=== PATIENT | female | born 1975 | race American Indian/Alaskan Native ===

== ENCOUNTER 2017-03-04 11:23 | Emergency (ER) | payer SELFPAY ==
[2017-03-04 12:47] LABS: Bilirubin,Urine NEG (Negative); Blood,Urine SM (Negative); Ketones,Urine NEG (Negative); Leukocyte Esterase,Urine NEG (Negative); Nitrite,Urine NEG (Negative); Protein,Urine <15 mg/dL mg/dL (Negative); RBC,Urine < 1.0 /HPF (0.0-6.0); Urobilinogen,Urine < 2.0 mg/dL (<2.0); WBC,Urine < 1.0 /HPF (0.0-6.0)
[2017-03-04] MEDS ORDERED: MORPHINE IV ONE (19:08)
--- NOTE | 2017-03-04 19:19 | Emergency Department Report ---
ED Abdominal Pain HPI - General Chief Complaint: Abdominal Pain Stated Complaint: BACK PAIN Time Seen by Provider: 03/04/17 19:07 Source: patient Mode of arrival: Ambulatory Limitations: No Limitations - History of Present Illness Initial Comments: Patient is a 41-year-old female who presents with no significant past medical history who presents with right flank pain medicine going on for 2 weeks the pain is intermittent is a 9 out of 10 and it has migrated to the right side of her abdomen. Nothing makes the flank pain better or worse. Patient denies having any dysuria or increased frequency her last bowel movement was this morning patient has no vaginal bleeding or discharge. Patient came in to the ER today because the pain has been more severe. Severity scale (0 -10): 0 - Related Data Home Medications Medication Instructions Recorded Confirmed Last Taken Aspirin EC [Aspirin Enteric Coated 81 mg PO BID 09/11/14 09/11/14 09/11/14 07:30 TAB] 81 mg Labetalol [Normodyne] 300 mg PO BID 09/11/14 09/11/14 09/11/14 07:30 300mg Vit #76/Iron,Carb/FA [Pnv 1 each PO DAILY 09/11/14 09/11/14 09/11/14 07 :30 29-1 Tablet] 1 tab Previous Rx's Medication Instructions Recorded Last Taken Type Ibuprofen [Motrin 800 MG tab] 800 mg PO Q6H PRN #30 tablet 09/15/14 Unknown Rx Acetaminophen [Acetaminophen TAB] 500 mg PO Q6HR #60 tablet 03/04/17 Unknown Rx Naproxen [Naproxen TAB] 250 mg PO Q6HR PRN #30 tablet 03/04/17 Unknown Rx Allergies Allergy/AdvReac Type Severity Reaction Status Date / Time lisinopril Allergy Itching Verified 09/11/14 10:30 ED Review of Systems ROS: Stated complaint: BACK PAIN Other details as noted in HPI Constitutional: denies: chills, fever Eyes: denies: eye pain, eye discharge, vision change ENT: denies: ear pain, throat pain Respiratory: denies: cough, shortness of breath, wheezing Cardiovascular: denies: chest pain, palpitations Endocrine: no symptoms reported Gastrointestinal: abdominal pain, other (flank pain) Genitourinary: denies: urgency, dysuria, discharge Musculoskeletal: denies: back pain, joint swelling, arthralgia Skin: denies: rash, lesions Neurological: denies: headache, weakness, paresthesias Psychiatric: denies: anxiety, depression Hematological/Lymphatic: denies: easy bleeding, easy bruising ED Past Medical Hx - Past Medical History Previous Medical History?: Yes Hx Hypertension: Yes Hx Congestive Heart Failure: No Hx Diabetes: No Hx Deep Vein Thrombosis: No Hx Renal Disease: No Hx Sickle Cell Disease: No Hx Seizures: No Hx Asthma: No Hx COPD: No Hx HIV: No - Surgical History Past Surgical History?: No - Social History Smoking Status: Current Every Day Smoker Substance Use Type: Alcohol - Medications Home Medications: Home Medications Medication Instructions Recorded Confirmed Last Taken Type Aspirin EC [Aspirin Enteric Coated 81 mg PO BID 09/11/14 09/11/14 09/11/14 07: 30 History TAB] 81 mg Labetalol [Normodyne] 300 mg PO BID 09/11/14 09/11/14 09/11/14 07:30 History 300mg Vit #76/Iron,Carb/FA [Pnv 1 each PO DAILY 09/11/14 09/11/14 09/11/14 07 :30 History 29-1 Tablet] 1 tab Ibuprofen [Motrin 800 MG tab] 800 mg PO Q6H PRN #30 tablet 09/15/14 Unknown Rx Acetaminophen [Acetaminophen TAB] 500 mg PO Q6HR #60 tablet 03/04/17 Unknown Rx Naproxen [Naproxen TAB] 250 mg PO Q6HR PRN #30 tablet 03/04/17 Unknown Rx ED Physical Exam - General Limitations: No Limitations General appearance: alert, in no apparent distress - Head Head exam: Present: atraumatic, normocephalic - Eye Eye exam: Present: normal appearance - ENT ENT exam: Present: mucous membranes moist - Neck Neck exam: Present: normal inspection - Respiratory Respiratory exam: Present: normal lung sounds bilaterally. Absent: respiratory distress - Cardiovascular Cardiovascular Exam: Present: regular rate, normal rhythm. Absent: systolic murmur, diastolic murmur, rubs, gallop - GI/Abdominal GI/Abdominal exam: Present: soft, normal bowel sounds. Absent: distended, tenderness, guarding - Extremities Exam Extremities exam: Present: normal inspection - Back Exam Back exam: Present: normal inspection - Neurological Exam Neurological exam: Present: alert, oriented X3 - Psychiatric Psychiatric exam: Present: normal affect, normal mood - Skin Skin exam: Present: warm, dry, intact, normal color. Absent: rash ED Course Vital Signs 03/04/17 03/04/17 11:37 18:30 Temperature 98.8 F 98.3 F Pulse Rate 84 76 Respiratory 18 14 Rate Blood Pressure 150/106 Blood Pressure 134/91 [Left] O2 Sat by Pulse 100 99 Oximetry ED Medical Decision Making - Lab Data Result diagrams: 03/04/17 19:50 03/04/17 19:50 Laboratory Results - last 24 hr 03/04/17 03/04/17 03/04/17 11:55 19:50 19:50 WBC 5.3 RBC 4.41 Hgb 14.4 H Hct 42.5 MCV 96 MCH 33 H MCHC 34 RDW 14.7 Plt Count 254 [place] % (Auto) Storage Consultant Add Manual Diff Complete Total Counted 100 Seg Neuts % (Manual) 42.0 Band Neutrophils % 1.0 Lymphocytes % (Manual) 40.0 H Reactive Lymphs % (Man) 0 Monocytes % (Manual) 8.0 H Eosinophils % (Manual) 6.0 H Basophils % (Manual) 2.0 H Metamyelocytes % 1.0 Myelocytes % 0 Promyelocytes % 0 Blast Cells % 0 Nucleated RBC % Not Reportable Seg Neutrophils # Man 2.2 Band Neutrophils # 0.1 Lymphocytes # (Manual) 2.1 Abs React Lymphs (Man) 0.0 Monocytes # (Manual) 0.4 Eosinophils # (Manual) 0.3 Basophils # (Manual) 0.1 Metamyelocytes # 0.1 Myelocytes # 0.0 Promyelocytes # 0.0 Blast Cells # 0.0 WBC Morphology Not Reportable Hypersegmented Neuts Not Reportable Hyposegmented Neuts Not Reportable Hypogranular Neuts Not Reportable Smudge Cells Not Reportable Toxic Granulation Not Reportable Toxic Vacuolation Not Reportable Dohle Bodies Not Reportable Pelger-Huet Anomaly Not Reportable Carlie Rods Not Reportable Platelet Estimate Appears normal Clumped Platelets Not Reportable Plt Clumps, EDTA Not Reportable Large Platelets Not Reportable Giant Platelets Not Reportable Platelet Satelliting Not Reportable Plt Morphology Comment Not Reportable RBC Morphology Normal Dimorphic RBCs Not Reportable Polychromasia Not Reportable Hypochromasia Not Reportable Poikilocytosis Not Reportable Anisocytosis Not Reportable Microcytosis Not Reportable Macrocytosis Not Reportable Spherocytes Not Reportable Pappenheimer Bodies Not Reportable Sickle Cells Not Reportable Target Cells Not Reportable Tear Drop Cells Not Reportable Ovalocytes Not Reportable Helmet Cells Not Reportable [place] Bodies Not Reportable [place] Rings Not Reportable [place] Cells Not Reportable Bite Cells Not Reportable Crenated Cell Not Reportable Elliptocytes Not Reportable Acanthocytes (Spur) Not Reportable Rouleaux Not Reportable Hemoglobin C Crystals Not Reportable Schistocytes Not Reportable Malaria parasites Not Reportable Joey Bodies Not Reportable Hem Pathologist Commnt No Sodium 140 Potassium 3.5 L Chloride 95.8 L Carbon Dioxide 29 Anion Gap 19 BUN 7 Creatinine 0.6 L Estimated GFR > 60 BUN/Creatinine Ratio 11.66 Glucose 91 Calcium 9.2 Total Bilirubin 0.30 AST 22 ALT 14 Alkaline Phosphatase 46 Total Protein 7.4 Albumin 4.2 Albumin/Globulin Ratio 1.3 Urine Color Yellow Urine Turbidity Clear Urine pH 8.0 H Ur Specific [place] 1.013 Urine Protein <15 mg/dl Urine Glucose (UA) Neg Urine Ketones Neg Urine Blood Sm Urine Nitrite Neg Urine Bilirubin Neg Urine Urobilinogen < 2.0 Ur Leukocyte Esterase Neg Urine WBC (Auto) < 1.0 Urine RBC (Auto) < 1.0 U Epithel Cells (Auto) < 1.0 - Radiology Data Radiology results: pending CT Scan shows no acute abdominal process to explain patient's findings patient may have early cirrhosis of the liver discuss finding with the patient stated that she needs to stop drinking alcohol. - Medical Decision Making Chief medical diagnosis: Nephrolithiasis Differential medical diagnosis: Pancreatitis, UTI, myalgia We'll get CBC CMP analgesia and CT scan of abdomen. Critical care attestation.: If time is entered above; I have spent that time in minutes in the direct care of this critically ill patient, excluding procedure time. ED Disposition Clinical Impression: Right flank pain Disposition: DC-01 TO HOME OR SELFCARE Is pt being admited?: No Does the pt Need Aspirin: No Condition: Stable Instructions: Abdominal Pain (ED) Additional Instructions: Please cut down on your use of alcohol. Prescriptions: Acetaminophen [Acetaminophen TAB] 500 mg PO Q6HR #60 tablet Naproxen [Naproxen TAB] 250 mg PO Q6HR PRN #30 tablet PRN Reason: Pain Referrals: PRIMARY CARE, [Primary Care Provider] - 3-5 Days Time of Disposition: 22:08
[2017-03-04 20:14] LABS: Hematocrit 42.5 % (30.3-42.9); Hemoglobin 14.4 gm/dl (10.1-14.3); Mean Corpuscular HGB Conc 34 % (30-34); Mean Corpuscular Hemoglobin 33 pg (28-32); Mean Corpuscular Volume 96 fl (79-97); Platelet Count 254 K/mm3 (140-440); Red Blood Count 4.41 M/mm3 (3.65-5.03); Red Cell Distribution Width 14.7 % (13.2-15.2); White Blood Count 5.3 K/mm3 (4.5-11.0)
[2017-03-04 20:37] LABS: Alanine Aminotransferase 14 units/L (7-56); Albumin 4.2 g/dL (3.9-5); Albumin/Globulin Ratio 1.3 %; Alkaline Phosphatase 46 units/L (35-129); Anion Gap 19 mmol/L; BUN/Creatinine Ratio 11.66; Blood Urea Nitrogen 7 mg/dL (7-17); Calcium 9.2 mg/dL (8.4-10.2); Carbon Dioxide 29 mmol/L (22-30); Chloride 95.8 mmol/L (98-107); Glucose 91 mg/dL (65-100); Potassium 3.5 mmol/L (3.6-5.0); Sodium 140 mmol/L (137-145); Total Protein 7.4 g/dL (6.3-8.2)
[2017-03-04 20:59] LABS: Blastocytes % (Manual) 0 %
[2017-03-04 21:00] LABS: Diff Status Complete; RBC Morphology Normal
--- NOTE | 2017-03-04 21:57 | Cat Scan Report ---
FINAL REPORT PROCEDURE: CT ABDOMEN PELVIS W CON TECHNIQUE: Computerized axial tomography of the abdomen and pelvis was performed after the IV injection of iodinated nonionic contrast. HISTORY: right abd pain COMPARISON: No prior studies are available for comparison. FINDINGS: Lower Lung mcmanus: No sinificant abnormality seen. Upper Abdomen: The gallbladder, the adrenal glands, pancreas and the spleen are unremarkable. The left lobe of the liver is large compared to the right lobe. Early cirrhosis can present in this manner.. Kidneys, Ureters and Urinary bladder: There is a nonobstructing 2 millimeter calculus in the lower 3rd of the right kidney. Kidneys, the ureters and urinary bladder otherwise are unremarkable. Calcifications are seen in the lower pelvis which appear to represent phleboliths Retroperitoneum: Atherosclerotic changes are seen in the abdominal aorta. No aneurysm is visualized. Nonspecific subcentimeter lymph nodes are seen in the retroperitoneum. No pathologically enlarged lymph nodes are identified. Bowel: Mild diverticulosis seen in the left side of the colon without evidence of diverticulitis. There also a few scattered diverticuli in the transverse colon. Normal-appearing appendix is seen in the right lower quadrant no evidence of bowel obstruction ascites or free intraperitoneal gas. Reproductive organs: Uterus is mildly deviated to the left of midline. Small cystic change seen in the left ovary with enhancing wall suggesting corpus luteum of the left ovary. Tubal ligation catheters visualized bilaterally. Adnexa otherwise are unremarkable. Other: None IMPRESSION: There is asymmetric prominence of the left lobe of the liver. I cannot exclude early cirrhosis. The liver is otherwise unremarkable. Small nonobstructing calculus lower 3rd right kidney. Mild colonic diverticulosis without evidence of diverticulitis. Tubal ligation catheters visualized bilateral fallopian tubes. No other abnormalities are seen.
[2017-03-04 22:35] VITALS: BP 144/101
== END 2017-03-04 22:32 | disposition home or self-care (01) ==
LOC: ED 11:23
DX: R10.9 Unspecified abdominal pain (principal); I10 Essential (primary) hypertension; F17.200 Nicotine dependence, unspecified, uncomplicated; Z88.8 Allergy status to other drugs, medicaments and biological substances; Z79.82 Long term (current) use of aspirin
CPT/HCPCS: 36415; 74177; 80053; 81001; 85007; 85025; 96374; 99284; J2270; Q9967

== ENCOUNTER 2017-03-06 08:14 | Emergency (ER) | payer SELFPAY ==
--- NOTE | 2017-03-06 11:56 | Emergency Department Report ---
ED Back Pain/Injury HPI - General Chief Complaint: Extremity Injury, Lower Stated Complaint: RT LEG PAIN/NUMBNESS Time Seen by Provider: 03/06/17 11:41 Source: patient, family Mode of arrival: Ambulatory Limitations: No Limitations - History of Present Illness Initial Comments: Patient here says that she's been having back pain that is radiating down her right leg and numbness in toes for one day. She says she was here 2 days ago and was treated with Acetaminophen and naproxen. She was here 2 days ago with back pain and CT scan of abdomen and pelvis without IV contrast did not show any acute processes. She had non-obstructive calculus to the lower third of her right kidney. She did not have a urinary tract infection based on urinalysis and her lab work included CBC and BMP was stable at the time. She denies any abdominal pain. Deniesany fever or chills or nausea or vomiting. denies any back injury. Pain is 10 out of 10 and achy. She says she's taken ibuprofen and naproxen but is not helping. He has any loss of bowel or bladder function. Patient has a history of high blood pressure on medication her blood pressure is 147/106. Denies any headache, blurred vision or dizziness. MD Complaint: back pain Onset/Timin -: days(s) Similar Symptoms Previously: Yes Place: home Radiation: right leg Severity: severe Severity scale (0 -10): 10 Quality: aching Consistency: constant Improves With: immobilization Worsens With: movement, walking Context: unknown Associated Symptoms: numbness. denies: confusion, weakness, chest pain, difficulty walking, cough, difficulty urinating, diaphoresis, incontinence, fever/chills, constipation, headaches, abdominal pain, loss of appetite, malaise , nausea/vomiting, rash, seizure, shortness of breath, syncope Treatments Prior to Arrival: NSAIDS - Related Data Home Medications Medication Instructions Recorded Confirmed Last Taken Aspirin EC [Aspirin Enteric Coated 81 mg PO BID 09/11/14 09/11/14 09/11/14 07:30 TAB] 81 mg Labetalol [Normodyne] 300 mg PO BID 09/11/14 09/11/14 09/11/14 07:30 300mg Vit #76/Iron,Carb/FA [Pnv 1 each PO DAILY 09/11/14 09/11/14 09/11/14 07 :30 29-1 Tablet] 1 tab Previous Rx's Medication Instructions Recorded Last Taken Type Ibuprofen [Motrin 800 MG tab] 800 mg PO Q6H PRN #30 tablet 09/15/14 Unknown Rx Naproxen [Naproxen TAB] 250 mg PO Q6HR PRN #30 tablet 03/04/17 Unknown Rx Acetaminophen/Codeine [Tylenol 1 tab PO Q6H PRN #12 tab 03/06/17 Unknown Rx /Codeine # 3 tab] Cyclobenzaprine [Flexeril] 10 mg PO TID PRN #15 tablet 03/06/17 Unknown Rx Allergies Allergy/AdvReac Type Severity Reaction Status Date / Time lisinopril Allergy Itching Verified 09/11/14 10:30 ED Review of Systems ROS: Stated complaint: RT LEG PAIN/NUMBNESS Other details as noted in HPI Comment: All other systems reviewed and negative Constitutional: denies: chills, fever Respiratory: no symptoms reported Cardiovascular: denies: chest pain, palpitations, dyspnea on exertion, edema, syncope Gastrointestinal: denies: abdominal pain, nausea, vomiting, diarrhea, constipation Genitourinary: denies: urgency, dysuria, frequency, hematuria Musculoskeletal: back pain, arthralgia. denies: joint swelling, myalgia Neurological: numbness. denies: headache, weakness, paresthesias, confusion, abnormal gait, vertigo ED Past Medical Hx - Past Medical History Previous Medical History?: Yes Hx Hypertension: Yes Hx Congestive Heart Failure: No Hx Diabetes: No Hx Deep Vein Thrombosis: No Hx Renal Disease: No Hx Sickle Cell Disease: No Hx Seizures: No Hx Asthma: No Hx COPD: No Hx HIV: No Additional medical history: back pain - Surgical History Past Surgical History?: Yes Additional Surgical History: Essure - Family History Family history: hypertension - Social History Smoking Status: Current Every Day Smoker Substance Use Type: Alcohol, Prescribed - Medications Home Medications: Home Medications Medication Instructions Recorded Confirmed Last Taken Type Aspirin EC [Aspirin Enteric Coated 81 mg PO BID 09/11/14 09/11/14 09/11/14 07: 30 History TAB] 81 mg Labetalol [Normodyne] 300 mg PO BID 09/11/14 09/11/14 09/11/14 07:30 History 300mg Vit #76/Iron,Carb/FA [Pnv 1 each PO DAILY 09/11/14 09/11/14 09/11/14 07 :30 History 29-1 Tablet] 1 tab Ibuprofen [Motrin 800 MG tab] 800 mg PO Q6H PRN #30 tablet 09/15/14 Unknown Rx Naproxen [Naproxen TAB] 250 mg PO Q6HR PRN #30 tablet 03/04/17 Unknown Rx Acetaminophen/Codeine [Tylenol 1 tab PO Q6H PRN #12 tab 03/06/17 Unknown Rx /Codeine # 3 tab] Cyclobenzaprine [Flexeril] 10 mg PO TID PRN #15 tablet 03/06/17 Unknown Rx ED Physical Exam - General Limitations: No Limitations General appearance: alert, in no apparent distress - Head Head exam: Present: atraumatic, normocephalic, normal inspection - Eye Eye exam: Present: normal appearance, PERRL, EOMI Pupils: Present: normal accommodation - ENT ENT exam: Present: normal exam, normal orophraynx, mucous membranes moist - Neck Neck exam: Present: normal inspection, full ROM. Absent: tenderness, meningismus, lymphadenopathy - Respiratory Respiratory exam: Present: normal lung sounds bilaterally. Absent: respiratory distress, chest wall tenderness - Cardiovascular Cardiovascular Exam: Present: regular rate, normal rhythm, normal heart sounds - GI/Abdominal GI/Abdominal exam: Present: soft, normal bowel sounds. Absent: distended, tenderness, guarding, rebound, rigid - Extremities Exam Extremities exam: Present: normal inspection, full ROM, normal capillary refill , other. Absent: tenderness, pedal edema, joint swelling, calf tenderness - Expanded Lower Extremity Exam Right Hip exam: Present: normal inspection, full ROM, pelvic stability. Absent: tenderness, swelling, abrasion, laceration, ecchymosis, deformity, crepidus, dislocation, erythema, external rotation, internal rotation, shortening Upper Leg exam: Present: normal inspection, full ROM. Absent: tenderness, swelling, abrasion, laceration, ecchymosis, deformity, crepidus, dislocation, erythema Knee exam: Present: normal inspection, full ROM, full knee extension. Absent: tenderness, swelling, abrasion, laceration, ecchymosis, deformity, crepidus, dislocation, erythema, effusion, pain w/ pronation/supination, posterior draw sign Lower Leg exam: Present: normal inspection, full ROM. Absent: tenderness, swelling, abrasion, laceration, ecchymosis, deformity, crepidus, dislocation, erythema, palpable cord, Oskar's sign Ankle exam: Present: normal inspection, full ROM. Absent: tenderness, swelling , abrasion, laceration, ecchymosis, deformity, crepidus, dislocation, erythema Foot/Toe exam: Present: normal inspection, full ROM. Absent: tenderness, swelling, abrasion, laceration, ecchymosis, deformity, crepidus, dislocation, erythema, amputation, puncture wound, foreign body, calcaneal tenderness, tenderness at base of 5th metatarsal, nail avulsion, subungual hematoma Neuro vascular tendon exam: Present: no vascular compromise. Absent: pulse deficit, abnormal cap refill, motor deficit, sensory deficit, tendon deficit, extremity cold to touch, pallor, abnormal 2-point discrimination, decreased fine /light touch, foot drop, peroneal nerve deficit, significant pain with passive ROM of distal joint Gait: Positive: observed and normal - Back Exam Back exam: Present: normal inspection, full ROM. Absent: tenderness, CVA tenderness (R), CVA tenderness (L), muscle spasm, paraspinal tenderness, vertebral tenderness, rash noted - Expanded Back Exam Expanded Back exam: Absent: saddle anesthesia Back exam: Negative Straight Leg Raising: Left, Right - Neurological Exam Neurological exam: Present: alert, oriented X3, normal gait, reflexes normal. Absent: motor sensory deficit - Expanded Neurological Exam Expanded Neurological exam: Absent: innattentive, memory loss-remote event, memory loss- recent event, ataxia, receptive aphasia, expressive aphasia, total aphasia, tremor, protecting the airway Patient oriented to: Present: person, place, time Speech: Present: fluid speech Cranial nerves: EOM's Intact: Normal, Gag Reflex: Normal, Tongue Deviation: Normal, Nystagmus: Normal, Facial Sensation: Normal Cerebellar function: Romberg: Normal Upper motor neuron: Pronator Drift: Normal, Sensory Extinction: Normal Sensory exam: Upper Extremity Light Touch: Normal, Upper Extremity Temperature: Normal, UE 2 Point Discrimination: Normal, Lower Extremity Light Touch: Normal, Lower Extremity Temperature: Normal, LE 2 Point Discrimination: Normal Motor strength exam: RUE: 5, LUE: 5, RLE: 5, LLE: 5 DTR: bicep (R): 2+, bicep (L): 2+, tricep (R): 2+, tricep (L): 2+, knee (R): 2+ , knee (L): 2+, ankle (R): 2+, ankle (L): 2+ Best Eye Response ([place]): (4) open spontaneously Best Motor Response ([place]): (6) obeys commands Best Verbal Response ([place]): (5) oriented [place] Total: 15 - Psychiatric Psychiatric exam: Present: normal affect, normal mood - Skin Skin exam: Present: warm, dry, intact, normal color. Absent: rash ED Course Vital Signs 03/06/17 03/06/17 08:23 12:59 Temperature 98.4 F Pulse Rate 82 65 Respiratory 18 20 Rate Blood Pressure 147/106 Blood Pressure 127/75 [Right] O2 Sat by Pulse 100 97 Oximetry - Reevaluation(s) Reevaluation #1: 03/06/17 13:42 Patient given Mauk 5/325 2 tablets and Toradol 60 mg by mouth for back pain and she voiced relief of her pain. ED Medical Decision Making - Radiology Data Radiology results: report reviewed X-ray of lumbar spine reveals mild arthritis to L5 to S1. She had a CT scan of the abdomen and pelvis on 03/04/2017 which shows that she has nonobstructive right lower renal calculi. - Medical Decision Making ED course: Pt presented to the emergency room for right lower back pain with radiation to her right lower extremity. She said she was here 2 days ago for back pain and he gave her naproxen and acetaminophen which is not helping. Patient had a CT scan on 03/04/2017 of her abdomen and pelvis without contrast due to presentation of back pain which shows right renal calculi without obstruction. LAB work from 03/04/2017 shows normal urinalysis and stable CBC and BMP. Patient was given Mauk 5/325 mg 2 tablets and Toradol 60 mg IM for back pain and she voiced relief. I Discussed with patient that she will need to follow up with orthopedic doctor and also urologist.I Discussed with her that she has a kidney stone on the right side which could be causing her back pain and she also has arthritis in her lower back which is causing back pain with radiculopathy. She does not have any hematuria or urinary symptoms at this present. Blood pressure was elevated in triage but it's now normalized. Patient is stable at present . Diagnosis is lumbar radiculopathy and right kidney stones. I explained to patient discharge diagnoses and treatment plan and she voiced understanding. Patient discharged home with prescription for Flexeril, Tylenol 3 and to continue her ibuprofen. Stop taking plain Tylenol . I discussed with her she needs to increase her fluid intake to 2-3 L of fluid to flush kidney stone on the first system. Patient discharged home in stable condition. Critical care attestation.: If time is entered above; I have spent that time in minutes in the direct care of this critically ill patient, excluding procedure time. ED Disposition Clinical Impression: Kidney stone on right side, Lumbar radiculopathy, acute Back pain Qualifiers: Back pain location: low back pain Chronicity: acute Back pain laterality: right Sciatica presence: with sciatica Sciatica laterality: sciatica of right side Qualified Code(s): M54.41 - Lumbago with sciatica, right side Disposition: TO HOME OR SELFCARE Is pt being admited?: No Does the pt Need Aspirin: No Condition: Stable Instructions: Kidney Stones (ED), Lumbar Radiculopathy (ED) Additional Instructions: Follow-up with urologist as instructed Follow-up with [facility] for management of blood pressure and chronic medical problem Follow-up with Dr. Mccall was orthopedic doctor Take medication as prescribed. Flexeril causes drowsiness so please do not drive or operate heavy machinery while taking this medication Increase U fluid to 2-3 L of liquids per day to flush kidney stone out Stop taking regular Tylenol and he can take Tylenol No. [address] or operate heavy machinery while taking this medication as it causes drowsiness Prescriptions: Acetaminophen/Codeine [Tylenol /Codeine # 3 tab] 1 tab PO Q6H PRN #12 tab PRN Reason: Pain , Severe (7-10) Cyclobenzaprine [Flexeril] 10 mg PO TID PRN #15 tablet PRN Reason: Muscle Spasm Referrals: PRIMARY CARE, [Primary Care Provider] - 2-3 Days [facility] [Outside] - 2-3 Days CHARLES LOWERY MD [Staff Physician] - 2-3 Days JOSEPH MCCALL MD [Staff Physician] - 03/09/17 Forms: Work/School Release Form(ED)
[2017-03-06] MEDS ORDERED: TORADOL IM ONE (11:59)
[2017-03-06] MEDS ORDERED: NORCO 5/325 PO ONE (11:59)
[2017-03-06 13:00] VITALS: BP 127/75
--- NOTE | 2017-03-06 13:15 | XRay Report ---
LUMBAR SPINE RADIOGRAPHS: INDICATION: Back pain with radiculopathy. COMPARISON: None similar. FINDINGS: AP and lateral lumbar spine radiographs demonstrate normal vertebral body stature and alignment. Mild L5-S1 disc narrowing not excluded. Normal remainder disc heights. Intact SI joints. Bilateral Essure devices. Nonobstructive bowel gas pattern. Clear visualized lung bases. Some extrinsic artifacts. CONCLUSION: No acute lumbar radiographic abnormality with L5-S1 disc narrowing questioned. Please correlate. Thank you for the opportunity to participate in this patient's care.
== END 2017-03-06 14:19 | disposition home or self-care (01) ==
LOC: ED 08:14
DX: N20.0 Calculus of kidney (principal); M54.16 Radiculopathy, lumbar region; M54.41 Lumbago with sciatica, right side; I10 Essential (primary) hypertension; F17.200 Nicotine dependence, unspecified, uncomplicated; Z88.8 Allergy status to other drugs, medicaments and biological substances
CPT/HCPCS: 72100; 96372; 99283; J1885

== ENCOUNTER 2020-12-19 17:23 | Emergency (ER) | payer MEDICAID ==
[2020-12-19 17:35] VITALS: BP 129/88
--- NOTE | 2020-12-19 18:34 | Event Note ---
ED Screening Note ED Screening Note: n/v/d that began three days ago states she has had multiple episodes of each no blood or pus in stool or vomit no recent travel no recent abx no water from different source, no camping states she feels dehydrated states she has abd cramping PMHx HTN allergy: lisinopril LNMP: 11/27/2020 PSHx: essure procedure This initial assessment/diagnostic orders/clinical plan/treatment(s) is/are subject to change based on patients health status, clinical progression and re- assessment by fellow clinical providers in the ED. Further treatment and workup at subsequent clinical providers discretion. Patient/guardian urged not to elope from the ED as their condition may be serious if not clinically assessed and managed. Initial orders include: labs, UA
[2020-12-19 19:23] LABS: Basophils % (Auto) 0.4 % (0.0-1.8); Eosinophils % (Auto) 0.6 % (0.0-4.3); Hematocrit 29.9 % (30.3-42.9); Hemoglobin 10.6 gm/dl (10.1-14.3); Lymphocytes % (Auto) 19.6 % (13.4-35.0); Mean Corpuscular HGB Conc 36 % (30-34); Mean Corpuscular Volume 102 fl (79-97); Monocytes # (Auto) 0.7 K/mm3 (0.0-0.8); Monocytes % (Auto) 13.4 % (0.0-7.3); Platelet Count 190 K/mm3 (140-440); Red Blood Count 2.93 M/mm3 (3.65-5.03)
[2020-12-19 19:24] LABS: Alanine Aminotransferase 45 units/L (7-56); Albumin 2.4 g/dL (3.9-5); Calcium 7.4 mg/dL (8.4-10.2); Hemolysis Index 0
[2020-12-19 19:27] LABS: Red Cell Distribution Width 21.3 % (13.2-15.2)
[2020-12-19 19:30] LABS: BUN/Creatinine Ratio 3; Blood Urea Nitrogen < 1 mg/dL (7-17)
[2020-12-19 20:16] LABS: Bacteria,Urine 1+ /HPF (Negative); Bilirubin,Urine MOD (Negative); Blood,Urine NEG (Negative); Color,Urine Amber (Yellow); Mucus,Urine FEW /HPF; Protein,Urine <15 mg/dL mg/dL (Negative)
--- NOTE | 2020-12-19 20:32 | Emergency Department Report ---
<SARAHPIEDAD - Last Filed: 12/20/20 01:31> ED Abdominal Pain HPI - General Chief Complaint: Abdominal Pain Stated Complaint: DEHYDRATED Time Seen by Provider: 12/19/20 18:33 - Related Data Home Medications Medication Instructions Recorded Confirmed Last Taken Aspirin EC [Aspirin Enteric Coated 81 mg PO BID 09/11/14 09/11/14 09/11/14 07:30 TAB] 81 mg Vit #76/Iron,Carb/FA [Pnv 1 each PO DAILY 09/11/14 09/11/14 09/11/14 07:30 29-1 Tablet] 1 tab labetaloL [Normodyne] 300 mg PO BID 09/11/14 09/11/14 09/11/14 07:30 300 mg Previous Rx's Medication Instructions Recorded Last Taken Type Ibuprofen [Motrin 800 MG tab] 800 mg PO Q6H PRN #30 tablet 09/15/14 Unknown Rx Naproxen [Naproxen TAB] 250 mg PO Q6HR PRN #30 tablet 03/04/17 Unknown Rx Acetaminophen/Codeine [Tylenol 1 tab PO Q6H PRN #12 tab 03/06/17 Unknown Rx /Codeine # 3 tab] Cyclobenzaprine [Flexeril] 10 mg PO TID PRN #15 tablet 03/06/17 Unknown Rx Allergies Allergy/AdvReac Type Severity Reaction Status Date / Time lisinopril Allergy Itching Verified 09/11/14 10:30 ED Past Medical Hx - Medications Home Medications: Home Medications Medication Instructions Recorded Confirmed Last Taken Type Aspirin EC [Aspirin Enteric Coated 81 mg PO BID 09/11/14 09/11/14 09/11/14 07:30 History TAB] 81 mg Vit #76/Iron,Carb/FA [Pnv 1 each PO DAILY 09/11/14 09/11/14 09/11/14 07:30 History 29-1 Tablet] 1 tab labetaloL [Normodyne] 300 mg PO BID 09/11/14 09/11/14 09/11/14 07:30 History 300 mg Ibuprofen [Motrin 800 MG tab] 800 mg PO Q6H PRN #30 tablet 09/15/14 Unknown Rx Naproxen [Naproxen TAB] 250 mg PO Q6HR PRN #30 tablet 03/04/17 Unknown Rx Acetaminophen/Codeine [Tylenol 1 tab PO Q6H PRN #12 tab 03/06/17 Unknown Rx /Codeine # 3 tab] Cyclobenzaprine [Flexeril] 10 mg PO TID PRN #15 tablet 03/06/17 Unknown Rx ED Medical Decision Making - Lab Data Result diagrams: 12/19/20 18:41 12/19/20 18:41 - Medical Decision Making I evaluated this patient alongside my colleague Mr. Albert CHACON. Mrs. Tatum is a 45-year-old female with history of alcohol use "3-4 beers every other day" who presents chief complaint of yellow eyes. She thought she may be dehydrated. She denies any pain. I have reviewed labs which revealed severely elevated total bilirubin AST to ALT ratio 3:1. I suspect alcoholic liver disease. I recommended outpatient GI follow-up. Also recommended cessation of alcohol use and avoidance of acetaminophen-containing products. ED Disposition Clinical Impression: Alcoholic liver disease, Painless jaundice Disposition: TO HOME OR SELFCARE Condition: Stable Instructions: Alcoholic Liver Disease, [id number], Jaundice, Adult, [id number], Abdominal Pain (ED) Additional Instructions: Please refrain from utilization of alcohol and Tylenol until you follow-up with gastroenterology Referrals: [facility] [Provider Group] - 3-5 Days BOB RUBIN MD [Staff Physician] - 3-5 Days <ELEANOR ZALDIVAR - Last Filed: 12/20/20 02:02> ED Abdominal Pain HPI - General Source: patient Mode of arrival: Ambulatory Limitations: No Limitations - History of Present Illness Initial Comments: 45-year-old -[place] female with past medical history of hypertension untreated presents emergency department complaining of a 4-day history of pelvic cramping pain that radiates up her abdomen associated with diarrhea and vomiting and a vague abdominal pressure. She reports no hemoptysis, hematemesis, no chest pain, no palpitation, no shortness of breath, no fever, chills, sweats no vaginal bleeding, no vaginal discharge, no hematochezia. She reports a history of tobacco abuse and states that she does drink from time to time. Complaint: abdominal pain ED Review of Systems ROS: Stated complaint: DEHYDRATED Other details as noted in HPI Comment: All other systems reviewed and negative ED Past Medical Hx - Past Medical History Previous Medical History?: Yes Hx Hypertension: Yes Hx Congestive Heart Failure: No Hx Diabetes: No Hx Deep Vein Thrombosis: No Hx Renal Disease: No Hx Sickle Cell Disease: No Hx Seizures: No Hx Asthma: No Hx COPD: No Hx HIV: No Additional medical history: back pain - Surgical History Past Surgical History?: Yes Additional Surgical History: Essure - Social History Smoking Status: Current Every Day Smoker Substance Use Type: Alcohol ED Physical Exam - General Limitations: No Limitations General appearance: alert, in no apparent distress - Head Head exam: Present: atraumatic, normocephalic - Eye Eye exam: Present: normal appearance, PERRL, scleral icterus Pupils: Present: normal accommodation - ENT ENT exam: Present: normal exam, mucous membranes moist - Neck Neck exam: Present: normal inspection - Respiratory Respiratory exam: Present: normal lung sounds bilaterally. Absent: respiratory distress - Cardiovascular Cardiovascular Exam: Present: regular rate, normal rhythm. Absent: systolic murmur, diastolic murmur, rubs, gallop - GI/Abdominal GI/Abdominal exam: Present: soft, tenderness, normal bowel sounds. Absent: guarding, rebound, hyperactive bowel sounds, hypoactive bowel sounds, organomegaly - Extremities Exam Extremities exam: Present: normal inspection, full ROM, normal capillary refill - Back Exam Back exam: Present: normal inspection - Neurological Exam Neurological exam: Present: alert, oriented X3 - Psychiatric Psychiatric exam: Present: normal affect, normal mood - Skin Skin exam: Present: warm, dry, intact, normal color. Absent: rash ED Course Vital Signs 12/19/20 17:29 Temperature 99.1 F Pulse Rate 117 H Respiratory 18 Rate Blood Pressure 129/88 O2 Sat by Pulse 99 Oximetry ED Medical Decision Making - Lab Data Result diagrams: 12/19/20 18:41 12/19/20 18:41 Lab Results 12/19/20 12/19/20 12/19/20 Range/Units 18:41 18:41 18:41 WBC 5.2 (4.5-11.0) K/mm3 RBC 2.93 L (3.65-5.03) M/mm3 Hgb 10.6 (10.1-14.3) gm/dl Hct 29.9 L (30.3-42.9) % MCV 102 H (79-97) fl MCH 36 H (28-32) pg MCHC 36 H (30-34) % RDW 21.3 H (13.2-15.2) % Plt Count 190 (140-440) K/mm3 Lymph % (Auto) 19.6 (13.4-35.0) % Valencia % (Auto) 13.4 H (0.0-7.3) % Eos % (Auto) 0.6 (0.0-4.3) % Baso % (Auto) 0.4 (0.0-1.8) % Lymph # (Auto) 1.0 L (1.2-5.4) K/mm3 Valencia # (Auto) 0.7 (0.0-0.8) K/mm3 Eos # (Auto) 0.0 (0.0-0.4) K/mm3 Baso # (Auto) 0.0 (0.0-0.1) K/mm3 Seg Neutrophils % 66.0 (40.0-70.0) % Seg Neutrophils # 3.4 (1.8-7.7) K/mm3 Sodium 124 L (137-145) mmol/L Potassium 2.4 L* (3.6-5.0) mmol/L Chloride 78.6 L (98-107) mmol/L Carbon Dioxide 35 H (22-30) mmol/L Anion Gap 13 mmol/L BUN < 1 L (7-17) mg/dL Creatinine 0.4 L (0.6-1.2) mg/dL Estimated GFR > 60 ml/min BUN/Creatinine Ratio 3 % Glucose 119 H (65-100) mg/dL Calcium 7.4 L (8.4-10.2) mg/dL Total Bilirubin 12.50 H (0.1-1.2) mg/dL AST 229 H (5-40) units/L ALT 45 (7-56) units/L Alkaline Phosphatase 194 H (35-129) units/L Total Protein 6.9 (6.3-8.2) g/dL Albumin 2.4 L (3.9-5) g/dL Albumin/Globulin Ratio 0.5 % Lipase (13-60) units/L HCG, Qual Negative (Negative) Urine Bilirubin (Negative) Urine RBC (Auto) (0.0-6.0) /HPF U Epithel Cells (Auto) (0-13.0) /HPF 12/19/20 12/19/20 Range/Units 19:08 19:57 WBC (4.5-11.0) K/mm3 RBC (3.65-5.03) M/mm3 Hgb (10.1-14.3) gm/dl Hct (30.3-42.9) % MCV (79-97) fl MCH (28-32) pg MCHC (30-34) % RDW (13.2-15.2) % Plt Count (140-440) K/mm3 Lymph % (Auto) (13.4-35.0) % Valencia % (Auto) (0.0-7.3) % Eos % (Auto) (0.0-4.3) % Baso % (Auto) (0.0-1.8) % Lymph # (Auto) (1.2-5.4) K/mm3 Valencia # (Auto) (0.0-0.8) K/mm3 Eos # (Auto) (0.0-0.4) K/mm3 Baso # (Auto) (0.0-0.1) K/mm3 Seg Neutrophils % (40.0-70.0) % Seg Neutrophils # (1.8-7.7) K/mm3 Sodium (137-145) mmol/L Potassium (3.6-5.0) mmol/L Chloride (98-107) mmol/L Carbon Dioxide (22-30) mmol/L Anion Gap mmol/L BUN (7-17) mg/dL Creatinine (0.6-1.2) mg/dL Estimated GFR ml/min BUN/Creatinine Ratio % Glucose (65-100) mg/dL Calcium (8.4-10.2) mg/dL Total Bilirubin (0.1-1.2) mg/dL AST (5-40) units/L ALT (7-56) units/L Alkaline Phosphatase (35-129) units/L Total Protein (6.3-8.2) g/dL Albumin (3.9-5) g/dL Albumin/Globulin Ratio % Lipase 12 L (13-60) units/L HCG, Qual (Negative) Urine Bilirubin Mod (Negative) Urine RBC (Auto) 2.0 (0.0-6.0) /HPF U Epithel Cells (Auto) 5.0 (0-13.0) /HPF - Radiology Data Radiology results: report reviewed [address] [place] [id number] Ultrasound Report Signed Patient: MARCUS GONZALES MR#: [id number] : 1975 Acct:[id number] Age/Sex: 45 / F ADM Date: 12/19/20 Loc: ED Attending Dr: Ordering Physician: ANAHY RED Date of Service: 12/20/20 Procedure(s): US abdomen limited Accession Number(s): [id number] cc: ANAHY RED ULTRASOUND ABDOMEN, LIMITED (RIGHT UPPER QUADRANT) INDICATION: ruq pain. COMPARISON: CT abdomen and pelvis with contrast from 12/19/2020. FINDINGS: Pancreas: Visualized portion shows no significant abnormality. Liver: Hepatic steatosis is again noted without other significant abnormalities. Gallbladder: Sludge and stones are present without wall thickening or pericholecystic fluid. Sonographic Patterson's sign: Not performed. Bile ducts: No significant abnormality. Common Bile Duct measures 2.0 mm. Free fluid: None. Additional Findings: None. IMPRESSION: 1. Cholelithiasis without sonographic evidence of acute cholecystitis. 2. Hepatic steatosis. Signer Name: Willem Ceron MD Signed: 12/20/2020 1:04 AM Workstation Name: [id number] Transcribed By: MN Dictated By: Willem Ceron MD Electronically Authenticated By: Willem Ceron MD Signed Date/Time: 12/20/20103 DD/ 1 TD/TT: [address] [place] [id number] Cat Scan Report Signed Patient: MARCUS GONZALES MR#: [id number] : 1975 Acct:[id number] Age/Sex: 45 / F ADM Date: 12/19/20 Loc: ED Attending Dr: Ordering Physician: ANAHY RED Date of Service: 12/19/20 Procedure(s): CT abdomen pelvis w con Accession Number(s): [id number] cc: ANAHY RED CT ABDOMEN AND PELVIS WITH IV CONTRAST INDICATION: right. Right-sided abdominal pain COMPARISON: None available. TECHNIQUE: Axial CT images were obtained through the abdomen and pelvis after 100 mL IV contrast. All CT scans at this location are performed using CT dose reduction for ALARA by means of automated exposure control. FINDINGS -- ABDOMEN: Lung Bases: No acute abnormality. Liver: Fatty liver. Gallbladder: Cholelithiasis. Mild gallbladder wall thickening.. Bile Ducts: Normal. Pancreas: Normal. Spleen: Normal. Adrenals: Normal. Right Kidney and Proximal Ureter: Normal. Left Kidney and Proximal Ureter: Normal. Stomach and Bowel: Normal. Lymph Nodes: No significant adenopathy. Aorta: No significant abnormality. IVC: Normal. Additional Findings: None. FINDINGS -- PELVIS: Urinary Bladder and Distal Ureters: Normal. Reproductive Organs: Several cysts noted within both ovaries. Appendix: Normal. Bowel: Colonic wall is borderline thickened especially the proximal colon and transverse colon. Free Fluid: None. Lymph Nodes: No significant adenopathy. Additional Findings: Pelvic phleboliths. Skeletal System: No acute abnormality. IMPRESSION: 1. Borderline gallbladder wall thickening with cholelithiasis. Dedicated gallbladder ultrasound would be useful for further evaluation 2. Severe fatty liver. 3. Borderline thickening of the proximal and mid colonic mucosa. Evaluation of the colon is difficult as it is mostly collapsed but low-level colitis is difficult to exclude. Few colonic diverticula without diverticulitis. Signer Name: Allen Velazquez MD Signed: 12/19/2020 9:44 PM Workstation Name: [id number] Transcribed By: WILLOW Dictated By: Allen Velazquez MD Electronically Authenticated By: Allen Velazquez MD Signed Date/Time: 12/19/202143 DD/ 39 TD/TT: Print Cancel Print Cancel Critical care attestation.: If time is entered above; I have spent that time in minutes in the direct care of this critically ill patient, excluding procedure time. ED Disposition Is pt being admited?: No Does the pt Need Aspirin: No
[2020-12-19 20:33] LABS: Ictotest,Urine Positive (Negative)
[2020-12-19 21:49] LABS: INR 1.43 (0.87-1.13)
--- NOTE | 2020-12-19 21:49 | Cat Scan Report ---
CT ABDOMEN AND PELVIS WITH IV CONTRAST INDICATION: right. Right-sided abdominal pain COMPARISON: None available. TECHNIQUE: Axial CT images were obtained through the abdomen and pelvis after 100 mL IV contrast. All CT scans a t this location are performed using CT dose reduction for ALARA by means of automated exposure contro l. FINDINGS -- ABDOMEN: Lung Bases: No acute abnormality. Liver: Fatty liver. Gallbladder: Cholelithiasis. Mild gallbladder wall thickening.. Bile Ducts: Normal. Pancreas: Normal. Spleen: Normal. Adrenals: Normal. Right Kidney and Proximal Ureter: Normal. Left Kidney and Proximal Ureter: Normal. Stomach and Bowel: Normal. Lymph Nodes: No significant adenopathy. Aorta: No significant abnormality. IVC: Normal. Additional Findings: None. FINDINGS -- PELVIS: Urinary Bladder and Distal Ureters: Normal. Reproductive Organs: Several cysts noted within both ovaries. Appendix: Normal. Bowel: Colonic wall is borderline thickened especially the proximal colon and pratt sverse colon. Free Fluid: None. Lymph Nodes: No significant adenopathy. Additional Findings: Pelvic phleboliths. Skeletal System: No acute abnormality. IMPRESSION: 1. Borderline gallbladder wall thickening with cholelithiasis. Dedicated gallbladder ultrasound would be useful for further evaluation 2. Severe fatty liver. 3. Borderline thickening of the proximal and mid colonic mucosa. Evaluation of the colon is difficult as it is mostly collapsed but low-level colitis is difficult to exclude. Few colonic diverticula wit hout diverticulitis. Signer Name: Allen Velazquez MD Signed: 12/19/2020 9:44 PM Workstation Name: [id number]
[2020-12-19 21:50] LABS: Partial Thromboplastin Time 39.4 Sec. (24.2-36.6)
--- NOTE | 2020-12-20 01:08 | Ultrasound Report ---
ULTRASOUND ABDOMEN, LIMITED (RIGHT UPPER QUADRANT) INDICATION: ruq pain. COMPARISON: CT abdomen and pelvis with contrast from 12/19/2020. FINDINGS: Pancreas: Visualized portion shows no significant abnormality. Liver: Hepatic steatosis is again noted without other significant abnormalities. Gallbladder: Sludge and stones are present without wall thickening or pericholecystic fluid. Sonogra phic Patterson's sign: Not performed. Bile ducts: No significant abnormality. Common Bile Duct measures 2.0 mm. Free fluid: None. Additional Findings: None. IMPRESSION: 1. Cholelithiasis without sonographic evidence of acute cholecystitis. 2. Hepatic steatosis. Signer Name: Willem Ceron MD Signed: 12/20/2020 1:04 AM Workstation Name: [id number]
== END 2020-12-20 02:15 | disposition home or self-care (01) ==
LOC: ED 17:23
DX: K70.9 Alcoholic liver disease, unspecified (principal); I10 Essential (primary) hypertension; F17.200 Nicotine dependence, unspecified, uncomplicated; Z98.890 Other specified postprocedural states; Z88.8 Allergy status to other drugs, medicaments and biological substances
CPT/HCPCS: 36415; 74177; 76705; 80053; 81001; 83615; 83690; 84703; 85025; 85610; 85730; 87086; 99284; Q9967

== ENCOUNTER 2021-01-06 18:05 | Inpatient (IN) | payer MEDICAID ==
--- NOTE | 2021-01-06 18:28 | Event Note ---
ED Screening Note Date of service: 01/06/21 Time: 18:22 ED Screening Note: 45-year-old female patient presents to the emergency department for further evaluation of hypokalemia. Patient received a telephone call from her physician notifying her of critically low potassium level last week. She was instructed to go to the hospital at that time, but she did not go because she had a to attend. Now that she has returned from the , she has come to the emergency department for evaluation and management of her potassium. Patient has recently been diagnosed with liver disease; states she is under the care of a specialist but a definitive diagnosis has not yet been identified. Patient states her "abdomen feels more swollen than usual." No chest pain, shortness of breath, palpitations. General: Awake, appropriately interactive, no acute distress. Eyes: Scleral icterus noted. Neck: Supple. Full range of motion intact. Cardiovascular: Normal peripheral perfusion. Pulmonary: No respiratory distress. Patient is speaking normally without use of accessory muscles. Skin: No apparent rashes or lesions. Neurological: No facial asymmetry. Speech is clear. Follows commands. Patient is alert and oriented. Musculoskeletal: Moves all four extremities spontaneously with normal range of motion. Psych: Cooperative. Appropriate mood and affect. I have greeted and performed a focused rapid initial assessment of this patient. A comprehensive ED assessment and evaluation of the patient, analysis of all test results, and completion of the medical decision-making process will be conducted by additional ED providers. This initial assessment/diagnostic orders/clinical plan/treatment(s) is/are subject to change based on patients health status, clinical progression and re-assessment. Further treatment and workup at subsequent clinical provider's discretion. Patient/guardian urged not to elope from the ED as their condition may be serious if not clinically assessed and managed.
[2021-01-06 18:44] LABS: Basophils # (Auto) 0.1 K/mm3 (0.0-0.1); Basophils % (Auto) 1.2 % (0.0-1.8); Eosinophils # (Auto) 0.1 K/mm3 (0.0-0.4); Eosinophils % (Auto) 2.2 % (0.0-4.3); Hematocrit 29.1 % (30.3-42.9); Hemoglobin 9.9 gm/dl (10.1-14.3); Lymphocytes # (Auto) 1.4 K/mm3 (1.2-5.4); Lymphocytes % (Auto) 22.2 % (13.4-35.0); Mean Corpuscular HGB Conc 34 % (30-34); Mean Corpuscular Volume 106 fl (79-97); Monocytes # (Auto) 0.7 K/mm3 (0.0-0.8); Monocytes % (Auto) 11.2 % (0.0-7.3); Platelet Count 285 K/mm3 (140-440); Red Blood Count 2.74 M/mm3 (3.65-5.03)
[2021-01-06 19:08] LABS: Alanine Aminotransferase 19 units/L (7-56); Albumin 2.4 g/dL (3.9-5); Blood Urea Nitrogen 4 mg/dL (7-17); Calcium 7.8 mg/dL (8.4-10.2); Hemolysis Index 0
[2021-01-06 19:12] LABS: INR 1.19 (0.87-1.13)
[2021-01-06 19:13] LABS: BUN/Creatinine Ratio 8; Partial Thromboplastin Time 37.1 Sec. (24.2-36.6)
--- NOTE | 2021-01-06 19:41 | Emergency Department Report ---
ED General Adult HPI - General Chief complaint: Medical Clearance Stated complaint: POTASSIUM LOW Time Seen by Provider: 01/06/21 19:40 Source: patient Mode of arrival: Ambulatory Limitations: No Limitations - History of Present Illness Initial comments: The patient presents to the emergency department laboratory findings. 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 Greco and she was told to come to the hospital for evaluation of a low potassium level. Patient states she was told her potassium level 2.0 today at her doctor's office. Patient denies any diuretics, diarrhea, vomiting. Patient also denies a history of adrenal disease. Patient states she does have liver disease but cannot tell me what diagnosis she has been given. She denies chest pain, shortness breath, or abdominal pain. -: unknown Severity scale (0 -10): 0 Consistency: constant Improves with: none Worsens with: none Associated Symptoms: denies other symptoms Treatments Prior to Arrival: none - Related Data Home Medications Medication Instructions Recorded Confirmed Last Taken Aspirin EC [Aspirin Enteric Coated 81 mg PO BID 09/11/14 09/11/14 09/11/14 07:30 TAB] 81 mg Vit #76/Iron,Carb/FA [Pnv 1 each PO DAILY 09/11/14 09/11/14 09/11/14 07:30 29-1 Tablet] 1 tab labetaloL [Normodyne] 300 mg PO BID 09/11/14 09/11/14 09/11/14 07:30 300 mg Previous Rx's Medication Instructions Recorded Last Taken Type Ibuprofen [Motrin 800 MG tab] 800 mg PO Q6H PRN #30 tablet 09/15/14 Unknown Rx Naproxen [Naproxen TAB] 250 mg PO Q6HR PRN #30 tablet 03/04/17 Unknown Rx Acetaminophen/Codeine [Tylenol 1 tab PO Q6H PRN #12 tab 03/06/17 Unknown Rx /Codeine # 3 tab] Cyclobenzaprine [Flexeril] 10 mg PO TID PRN #15 tablet 03/06/17 Unknown Rx Allergies Allergy/AdvReac Type Severity Reaction Status Date / Time lisinopril Allergy Itching Verified 09/11/14 10:30 ED Review of Systems ROS: Stated complaint: POTASSIUM LOW Other details as noted in HPI Comment: All other systems reviewed and negative Constitutional: denies: chills, fever Eyes: denies: eye pain, eye discharge, vision change ENT: denies: ear pain, throat pain Respiratory: denies: cough, shortness of breath, wheezing Cardiovascular: denies: chest pain, palpitations Endocrine: no symptoms reported Gastrointestinal: denies: abdominal pain, nausea, diarrhea Genitourinary: denies: urgency, dysuria, discharge Musculoskeletal: denies: back pain, joint swelling, arthralgia Skin: denies: rash, lesions Neurological: denies: headache, weakness, paresthesias Psychiatric: denies: anxiety, depression Hematological/Lymphatic: denies: easy bleeding, easy bruising ED Past Medical Hx - Past Medical History Previous Medical History?: Yes Hx Hypertension: Yes Hx Congestive Heart Failure: No Hx Diabetes: No Hx Deep Vein Thrombosis: No Hx Renal Disease: No Hx Sickle Cell Disease: No Hx Seizures: No Hx Asthma: No Hx COPD: No Hx HIV: No Additional medical history: back pain - Surgical History Additional Surgical History: Essure - Social History Smoking Status: Current Every Day Smoker Substance Use Type: Alcohol - Medications Home Medications: Home Medications Medication Instructions Recorded Confirmed Last Taken Type Aspirin EC [Aspirin Enteric Coated 81 mg PO BID 09/11/14 09/11/14 09/11/14 07:30 History TAB] 81 mg Vit #76/Iron,Carb/FA [Pnv 1 each PO DAILY 09/11/14 09/11/14 09/11/14 07:30 History 29-1 Tablet] 1 tab labetaloL [Normodyne] 300 mg PO BID 09/11/14 09/11/14 09/11/14 07:30 History 300 mg Ibuprofen [Motrin 800 MG tab] 800 mg PO Q6H PRN #30 tablet 09/15/14 Unknown Rx Naproxen [Naproxen TAB] 250 mg PO Q6HR PRN #30 tablet 03/04/17 Unknown Rx Acetaminophen/Codeine [Tylenol 1 tab PO Q6H PRN #12 tab 03/06/17 Unknown Rx /Codeine # 3 tab] Cyclobenzaprine [Flexeril] 10 mg PO TID PRN #15 tablet 03/06/17 Unknown Rx ED Physical Exam - General Limitations: No Limitations General appearance: alert, in no apparent distress - Head Head exam: Present: atraumatic, normocephalic - Eye Eye exam: Present: scleral icterus - ENT ENT exam: Present: mucous membranes moist - Neck Neck exam: Present: normal inspection - Respiratory Respiratory exam: Present: normal lung sounds bilaterally. Absent: respiratory distress - Cardiovascular Cardiovascular Exam: Present: regular rate, normal rhythm. Absent: systolic murmur, diastolic murmur, rubs, gallop - GI/Abdominal GI/Abdominal exam: Present: soft, normal bowel sounds. Absent: distended, tenderness - Extremities Exam Extremities exam: Present: normal inspection - Back Exam Back exam: Present: normal inspection - Neurological Exam Neurological exam: Present: alert, oriented X3, CN II-XII intact. Absent: motor sensory deficit - Psychiatric Psychiatric exam: Present: normal affect, normal mood - Skin Skin exam: Present: warm, dry, intact, normal color. Absent: rash ED Course Vital Signs 01/06/21 18:18 Temperature 98.9 F Pulse Rate 77 Respiratory 20 Rate Blood Pressure 129/93 [Right] O2 Sat by Pulse 96 Oximetry ED Medical Decision Making - Lab Data Result diagrams: 01/06/21 18:34 01/06/21 19:45 Lab Results 01/06/21 01/06/21 01/06/21 Range/Units 18:34 18:34 18:34 WBC 6.5 (4.5-11.0) K/mm3 RBC 2.74 L (3.65-5.03) M/mm3 Hgb 9.9 L (10.1-14.3) gm/dl Hct 29.1 L (30.3-42.9) % MCV 106 H (79-97) fl MCH 36 H (28-32) pg MCHC 34 (30-34) % RDW 18.0 H (13.2-15.2) % Plt Count 285 (140-440) K/mm3 Lymph % (Auto) 22.2 (13.4-35.0) % [place] % (Auto) 11.2 H (0.0-7.3) % Eos % (Auto) 2.2 (0.0-4.3) % Baso % (Auto) 1.2 (0.0-1.8) % Lymph # (Auto) 1.4 (1.2-5.4) K/mm3 [place] # (Auto) 0.7 (0.0-0.8) K/mm3 Eos # (Auto) 0.1 (0.0-0.4) K/mm3 Baso # (Auto) 0.1 (0.0-0.1) K/mm3 Seg Neutrophils % 63.2 (40.0-70.0) % Seg Neutrophils # 4.1 (1.8-7.7) K/mm3 PT 15.6 H (12.2-14.9) Sec. INR 1.19 H (0.87-1.13) APTT 37.1 H (24.2-36.6) Sec. Sodium 129 L (137-145) mmol/L Potassium 2.0 L* (3.6-5.0) mmol/L Chloride 86.3 L (98-107) mmol/L Carbon Dioxide 32 H (22-30) mmol/L Anion Gap 13 mmol/L BUN 4 L (7-17) mg/dL Creatinine 0.5 L (0.6-1.2) mg/dL Estimated GFR > 60 ml/min BUN/Creatinine Ratio 8 % Glucose 166 H (65-100) mg/dL Calcium 7.8 L (8.4-10.2) mg/dL Magnesium 1.40 L (1.7-2.3) mg/dL Total Bilirubin 3.60 H (0.1-1.2) mg/dL AST 65 H (5-40) units/L ALT 19 (7-56) units/L Alkaline Phosphatase 139 H (35-129) units/L Ammonia (25-60) umol/L Total Protein 7.2 (6.3-8.2) g/dL Albumin 2.4 L (3.9-5) g/dL Albumin/Globulin Ratio 0.5 % 01/06/21 01/06/21 Range/Units 18:34 19:45 WBC (4.5-11.0) K/mm3 RBC (3.65-5.03) M/mm3 Hgb (10.1-14.3) gm/dl Hct (30.3-42.9) % MCV (79-97) fl MCH (28-32) pg MCHC (30-34) % RDW (13.2-15.2) % Plt Count (140-440) K/mm3 Lymph % (Auto) (13.4-35.0) % [place] % (Auto) (0.0-7.3) % Eos % (Auto) (0.0-4.3) % Baso % (Auto) (0.0-1.8) % Lymph # (Auto) (1.2-5.4) K/mm3 [place] # (Auto) (0.0-0.8) K/mm3 Eos # (Auto) (0.0-0.4) K/mm3 Baso # (Auto) (0.0-0.1) K/mm3 Seg Neutrophils % (40.0-70.0) % Seg Neutrophils # (1.8-7.7) K/mm3 PT (12.2-14.9) Sec. INR (0.87-1.13) APTT (24.2-36.6) Sec. Sodium (137-145) mmol/L Potassium 2.0 L* (3.6-5.0) mmol/L Chloride (98-107) mmol/L Carbon Dioxide (22-30) mmol/L Anion Gap mmol/L BUN (7-17) mg/dL Creatinine (0.6-1.2) mg/dL Estimated GFR ml/min BUN/Creatinine Ratio % Glucose (65-100) mg/dL Calcium (8.4-10.2) mg/dL Magnesium (1.7-2.3) mg/dL Total Bilirubin (0.1-1.2) mg/dL AST (5-40) units/L ALT (7-56) units/L Alkaline Phosphatase (35-129) units/L Ammonia 51.0 (25-60) umol/L Total Protein (6.3-8.2) g/dL Albumin (3.9-5) g/dL Albumin/Globulin Ratio % - EKG Data -: EKG Interpreted by Hi EKG shows normal: sinus rhythm Rate: normal - Medical Decision Making Patient given IV potassium and IV magnesium as well as p.o. potassium Critical Care Time: Yes Critical care time in (mins) excluding proc time.: 35 Critical care attestation.: If time is entered above; I have spent that time in minutes in the direct care of this critically ill patient, excluding procedure time. ED Disposition Clinical Impression: Hypokalemia, Hypomagnesemia, Transaminitis Disposition: OP ADMIT IP TO THIS HOSP Is pt being admited?: Yes Does the pt Need Aspirin: No Condition: Fair Referrals: PRIMARY CARE,MD [Primary Care Provider] - 3-5 Days
[2021-01-06] MEDS ORDERED: SODIUM CHLORIDE 0.9% 1000 ML 1,000 ML IV ONE (20:34)
[2021-01-06] MEDS ORDERED: MAGNESIUM SULFATE 2 GM/50 ML BAG IV ONE ×2 (20:34→22:40)
[2021-01-06] MEDS ORDERED: POTASSIUM CHLORIDE 20 MEQ PACKET FEEDTUBE ONE (20:35)
[2021-01-06] MEDS: POTASSIUM CHLORIDE 10 MEQ 10 MEQ/100 ML BAG IV SCH (21:00)
[2021-01-06] MEDS ORDERED: ACETAMINOPHEN W/CODEINE 300-30 MG TAB PO PRN (22:36)
[2021-01-06] MEDS ORDERED: NAPROXEN 250 MG PO PRN (22:36)
[2021-01-06] MEDS ORDERED: CYCLOBENZAPRINE 10 MG TAB PO PRN (22:36)
[2021-01-06] MEDS ORDERED: ACETAMINOPHEN 325 MG TAB PO PRN (22:37)
[2021-01-06] MEDS ORDERED: ALBUTEROL 2.5 MG/3 ML NEBU IH PRN (22:37)
[2021-01-06] MEDS ORDERED: ONDANSETRON 4 MG/2 ML INJ IV PRN (22:37)
[2021-01-06] MEDS ORDERED: hydrALAZINE 20 MG/1 ML INJ IV PRN (22:39)
--- NOTE | 2021-01-06 22:46 | History and Physical Report ---
History of Present Illness Date of examination: 01/06/21 Date of admission: 01/06/21 21:50 Chief complaint: Hypokalemia History of present illness: 45 years old female with history of hypertension and back pain was brought to the emergency department because of hypokalemia and hypomagnesemia. 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 Greco and she was told to come to the hospital for evaluation of a low potassium level. Patient states she was told her potassium level 2.0 today at her doctor's office. Patient denies any diuretics, diarrhea, vomiting. Patient also denies a history of adrenal disease. Patient states she does have liver disease but cannot tell me what diagnosis she has been given. She denies chest pain, shortness breath, or abdominal pain. In the emergency room patient is found to have potassium of 2.0 and magnesium 1.4 Past History Past Medical History: hypertension, other (Back pain) Medications and Allergies Allergies Allergy/AdvReac Type Severity Reaction Status Date / Time lisinopril Allergy Itching Verified 09/11/14 10:30 Home Medications Medication Instructions Recorded Confirmed Last Taken Type Aspirin EC [Aspirin Enteric Coated 81 mg PO BID 09/11/14 09/11/14 09/11/14 07:30 History TAB] 81 mg Vit #76/Iron,Carb/FA [Pnv 1 each PO DAILY 09/11/14 09/11/14 09/11/14 07:30 History 29-1 Tablet] 1 tab labetaloL [Normodyne] 300 mg PO BID 09/11/14 09/11/14 09/11/14 07:30 History 300 mg Ibuprofen [Motrin 800 MG tab] 800 mg PO Q6H PRN #30 tablet 09/15/14 Unknown Rx Naproxen [Naproxen TAB] 250 mg PO Q6HR PRN #30 tablet 03/04/17 Unknown Rx Acetaminophen/Codeine [Tylenol 1 tab PO Q6H PRN #12 tab 03/06/17 Unknown Rx /Codeine # 3 tab] Cyclobenzaprine [Flexeril] 10 mg PO TID PRN #15 tablet 03/06/17 Unknown Rx Active Meds: Active Medications Acetaminophen (Acetaminophen 325 Mg Tab) 650 mg PO Q4H PRN PRN Reason: Pain MILD(1-3)/Fever >100.5/ZHANG Acetaminophen/Codeine Phosphate (Acetaminophen W/Codeine 300-30 Mg Tab) 1 tab PO Q6H PRN PRN Reason: Pain , Severe (7-10) Albuterol (Albuterol 2.5 Mg/3 Ml Nebu) 2.5 mg IH Q4HRT PRN PRN Reason: Shortness Of Breath Albuterol/Ipratropium (Ipratropium/Albuterol Sulfate 3 Ml Ampul.Neb) 1 ampul IH Q6HRT [facility] Aspirin (Aspirin Ec 81 Mg Tab) 81 mg PO BID [facility] Cyclobenzaprine HCl (Cyclobenzaprine 10 Mg Tab) 10 mg PO TID PRN PRN Reason: Muscle Spasm Potassium Chloride (Kcl 10meq/100ml) 10 meq in 100 mls @ 100 mls/hr IV Q1H MENG Stop: 01/06/21 22:59 Last Admin: 01/06/21 21:00 Dose: 100 mls/hr Documented by: Potassium Chloride/Dextrose/Sod Cl (D5w/0.45% Nacl/Kcl 20 Meq) 20 meq in 1,000 mls @ 100 mls/hr IV DIRECT [facility] Labetalol HCl (Labetalol 200 Mg Tab) 300 mg PO BID [facility] Miscellaneous Medication (Naproxen [Naproxen Tab]) 250 mg PO Q6HR PRN PRN Reason: PAIN Miscellaneous Medication ( Vit #76/Iron,Carb/Fa [Pnv 29-1 Tablet]) 1 each PO DAILY [facility] Ondansetron HCl (Ondansetron 4 Mg/2 Ml Inj) 4 mg IV Q8H PRN PRN Reason: Nausea And Vomiting Sodium Chloride (Sodium Chloride 0.9% 10 Ml Flush Syringe) 10 ml IV BID [facility] Sodium Chloride (Sodium Chloride 0.9% 10 Ml Flush Syringe) 10 ml IV PRN PRN PRN Reason: LINE FLUSH Review of Systems Constitutional: other (Back pain) Exam - Constitutional Vitals: Temp Pulse Resp BP Pulse Ox 98.9 F 77 20 129/93 96 01/06/21 18:18 01/06/21 18:18 01/06/21 18:18 01/06/21 18:18 01/06/21 18:18 General appearance: Present: no acute distress, well-nourished - EENT Eyes: Present: PERRL ENT: hearing intact, clear oral mucosa - Neck Neck: Present: supple, normal ROM - Respiratory Respiratory effort: normal Respiratory: bilateral: CTA - Cardiovascular Heart Sounds: Present: S1 & S2. Absent: rub, click - Extremities Extremities: pulses symmetrical, No edema Peripheral Pulses: within normal limits - Abdominal General gastrointestinal: Present: soft, non-tender, non-distended, normal bowel sounds Female genitourinary: Present: normal - Integumentary Integumentary: Present: clear, warm, dry - Musculoskeletal Musculoskeletal: gait normal, strength equal bilaterally - Psychiatric Psychiatric: appropriate mood/affect, intact judgment & insight - Neurologic Neurologic: CNII-XII intact, moves all extremities Results - Labs CBC & Chem 7: 01/06/21 18:34 01/06/21 19:45 Labs: Laboratory Last Values WBC 6.5 K/mm3 (4.5-11.0) 01/06/21 18:34 RBC 2.74 M/mm3 (3.65-5.03) L 01/06/21 18:34 Hgb 9.9 gm/dl (10.1-14.3) L 01/06/21 18:34 Hct 29.1 % (30.3-42.9) L 01/06/21 18:34 MCV 106 fl (79-97) H 01/06/21 18:34 MCH 36 pg (28-32) H 01/06/21 18:34 MCHC 34 % (30-34) 01/06/21 18:34 RDW 18.0 % (13.2-15.2) H 01/06/21 18:34 Plt Count 285 K/mm3 (140-440) 01/06/21 18:34 Lymph % (Auto) 22.2 % (13.4-35.0) 01/06/21 18:34 [place] % (Auto) 11.2 % (0.0-7.3) H 01/06/21 18:34 Eos % (Auto) 2.2 % (0.0-4.3) 01/06/21 18:34 Baso % (Auto) 1.2 % (0.0-1.8) 01/06/21 18:34 Lymph # (Auto) 1.4 K/mm3 (1.2-5.4) 01/06/21 18:34 [place] # (Auto) 0.7 K/mm3 (0.0-0.8) 01/06/21 18:34 Eos # (Auto) 0.1 K/mm3 (0.0-0.4) 01/06/21 18:34 Baso # (Auto) 0.1 K/mm3 (0.0-0.1) 01/06/21 18:34 Seg Neutrophils % 63.2 % (40.0-70.0) 01/06/21 18:34 Seg Neutrophils # 4.1 K/mm3 (1.8-7.7) 01/06/21 18:34 PT 15.6 Sec. (12.2-14.9) H 01/06/21 18:34 INR 1.19 (0.87-1.13) H 01/06/21 18:34 APTT 37.1 Sec. (24.2-36.6) H 01/06/21 18:34 Sodium 129 mmol/L (137-145) L 01/06/21 18:34 Potassium 2.0 mmol/L (3.6-5.0) L* 01/06/21 19:45 Chloride 86.3 mmol/L (98-107) L 01/06/21 18:34 Carbon Dioxide 32 mmol/L (22-30) H 01/06/21 18:34 Anion Gap 13 mmol/L 01/06/21 18:34 BUN 4 mg/dL (7-17) L 01/06/21 18:34 Creatinine 0.5 mg/dL (0.6-1.2) L 01/06/21 18:34 Estimated GFR > 60 ml/min 01/06/21 18:34 BUN/Creatinine Ratio 8 % 01/06/21 18:34 Glucose 166 mg/dL (65-100) H 01/06/21 18:34 Calcium 7.8 mg/dL (8.4-10.2) L 01/06/21 18:34 Magnesium 1.40 mg/dL (1.7-2.3) L 01/06/21 18:34 Total Bilirubin 3.60 mg/dL (0.1-1.2) H 01/06/21 18:34 AST 65 units/L (5-40) H 01/06/21 18:34 ALT 19 units/L (7-56) 01/06/21 18:34 Alkaline Phosphatase 139 units/L (35-129) H 01/06/21 18:34 Ammonia 51.0 umol/L (25-60) 01/06/21 18:34 Total Protein 7.2 g/dL (6.3-8.2) 01/06/21 18:34 Albumin 2.4 g/dL (3.9-5) L 01/06/21 18:34 Albumin/Globulin Ratio 0.5 % 01/06/21 18:34 Assessment and Plan VTE prophylaxis?: Chemical Plan of care discussed with patient/family: Yes - Patient Problems (1) Hypokalemia Current Visit: Yes Status: Acute Plan to address problem: Admit the patient to the medical floor. Put the patient on potassium chloride 40 mEq p.o. every 4 hours x3 dose. D5 half-normal saline with 20 mEq of potassium at the rate of 100 cc/h. We also gave 2 g of magnesium. We will recheck the CMP in the morning. (2) Hypomagnesemia Current Visit: Yes Status: Acute Plan to address problem: Put the patient on potassium chloride 40 mEq p.o. every 4 hours x3 dose. D5 half-normal saline with 20 mEq of potassium at the rate of 100 cc/h. We also gave 2 g of magnesium. We will recheck the CMP in the morning. (3) Transaminitis Current Visit: Yes Status: Acute Plan to address problem: Protonix 40 mg p.o. daily. Zofran 4 mg IV every 6 hours as needed. D5 half- normal saline with 20 of potassium at the rate of 100 cc/h. We will recheck the CMP in the morning. If needed will consult GI in the morning (4) HTN (hypertension) Current Visit: No Status: Acute Plan to address problem: Labetalol 300 mg p.o. twice daily. Hydralazine 10 mg IV every 6 hours as ne eded. We will monitor the blood pressure closely (5) DVT prophylaxis Current Visit: Yes Status: Acute Plan to address problem: Heparin 5000 units subcu every 8 hours for DVT prophylaxis. Protonix 40 mg p.o. daily for GI prophylaxis. Patient is a full code
[2021-01-06] MEDS ORDERED: NAPROXEN 500 MG TAB PO PRN (22:51)
[2021-01-07] MEDS: IPRATROPIUM/ALBUTEROL SULFATE 3 ML AMPUL.NEB IH SCH ×2 (02:22→08:58)
[2021-01-07] MEDS: POTASSIUM CHLORIDE 10 MEQ 10 MEQ/100 ML BAG IV SCH (03:56)
[2021-01-07] MEDS: POTASSIUM CHLORIDE ER 20 MEQ TAB PO SCH ×3 (03:59→06:28)
[2021-01-07 06:14] LABS: Basophils % (Auto) 0.5 % (0.0-1.8); Eosinophils # (Auto) 0.2 K/mm3 (0.0-0.4); Eosinophils % (Auto) 3.2 % (0.0-4.3); Hematocrit 25.1 % (30.3-42.9); Hemoglobin 8.7 gm/dl (10.1-14.3); Lymphocytes # (Auto) 1.7 K/mm3 (1.2-5.4); Lymphocytes % (Auto) 29.8 % (13.4-35.0); Mean Corpuscular HGB Conc 35 % (30-34); Mean Corpuscular Volume 105 fl (79-97); Monocytes # (Auto) 0.8 K/mm3 (0.0-0.8); Monocytes % (Auto) 13.7 % (0.0-7.3); Platelet Count 255 K/mm3 (140-440)
[2021-01-07 06:26] LABS: Blood Urea Nitrogen 3 mg/dL (7-17); Calcium 7.4 mg/dL (8.4-10.2); Hemolysis Index 0
[2021-01-07 06:27] LABS: BUN/Creatinine Ratio 8
[2021-01-07] MEDS: HEPARIN 5,000 UNIT/1 ML VIAL SUB-Q SCH ×3 (06:28→21:17)
--- NOTE | 2021-01-07 07:33 | Progress Note ---
Assessment and Plan Assessment and plan: (1) Hypokalemia Current Visit: Yes Status: Acute Plan to address problem: Admit the patient to the medical floor. Put the patient on potassium chloride 40 mEq p.o. every 4 hours x3 dose. D5 half-normal saline with 20 mEq of potassium at the rate of 100 cc/h. We also gave 2 g of magnesium. We will recheck the CMP in the morning. (2) Hypomagnesemia Current Visit: Yes Status: Acute Plan to address problem: Put the patient on potassium chloride 40 mEq p.o. every 4 hours x3 dose. D5 half-normal saline with 20 mEq of potassium at the rate of 100 cc/h. We also gave 2 g of magnesium. We will recheck the CMP in the morning. (3) Transaminitis Current Visit: Yes Status: Acute Plan to address problem: Protonix 40 mg p.o. daily. Zofran 4 mg IV every 6 hours as needed. D5 half- normal saline with 20 of potassium at the rate of 100 cc/h. We will recheck the CMP in the morning. If needed will consult GI in the morning (4) HTN (hypertension) Current Visit: No Status: Acute Plan to address problem: Labetalol 300 mg p.o. twice daily. Hydralazine 10 mg IV every 6 hours as needed. We will monitor the blood pressure closely (5) DVT prophylaxis Current Visit: Yes Status: Acute Plan to address problem: Heparin 5000 units subcu every 8 hours for DVT prophylaxis. Protonix 40 mg p.o. daily for GI prophylaxis. Patient is a full code 01/07/2021 -Patient has severe hypokalemia and hypomagnesemia -We will replete potassium and magnesium -We will monitor levels later in the afternoon and tomorrow morning -Patient states she has chronic liver disease and followed with her GI doctor as an outpatient, no need to be evaluated as inpatient. Continue to follow with GI after discharge -Patient can be discharged tomorrow if hypokalemia and hypomagnesemia are corrected. History Interval history: Patient was seen and evaluated this morning Patient does not have any complaints Patient has chronic liver disease and being followed with GI as an outpatient She was called by her GI physician and told her potassium was low and need admission. Hospitalist Physical - Physical exam Narrative exam: Not in cardiopulmonary distress. The patient appeared well nourished and normally developed. Vital signs as documented. Head exam is unremarkable. No scleral icterus . Neck is without jugular venous distension, thyromegaly, or carotid bruits. Lungs are clear to auscultation. Cardiac exam reveals regular rate and Rhythm. Abdominal exam reveals normal bowel sounds, nontender, no organomegaly. Extremities are nonedematous and both femoral and pedal pulses are normal. DISH CARRIER: Alert and oriented 3. No focal weakness. - Constitutional Vitals: Temp Pulse Resp BP Pulse Ox 98.4 F 77 20 129/89 95 01/07/21 04:32 01/07/21 04:32 01/07/21 04:32 01/07/21 04:32 01/07/21 04:32 General appearance: Present: no acute distress, well-nourished Results - Labs CBC & Chem 7: 01/07/21 04:26 01/07/21 04:26 Labs: Laboratory Last Values WBC 5.8 K/mm3 (4.5-11.0) 01/07/21 04:26 RBC 2.40 M/mm3 (3.65-5.03) L 01/07/21 04:26 Hgb 8.7 gm/dl (10.1-14.3) L 01/07/21 04:26 Hct 25.1 % (30.3-42.9) L 01/07/21 04:26 MCV 105 fl (79-97) H 01/07/21 04:26 MCH 36 pg (28-32) H 01/07/21 04:26 MCHC 35 % (30-34) H 01/07/21 04:26 RDW 17.0 % (13.2-15.2) H 01/07/21 04:26 Plt Count 255 K/mm3 (140-440) 01/07/21 04:26 Lymph % (Auto) 29.8 % (13.4-35.0) 01/07/21 04:26 [place] % (Auto) 13.7 % (0.0-7.3) H 01/07/21 04:26 Eos % (Auto) 3.2 % (0.0-4.3) 01/07/21 04:26 Baso % (Auto) 0.5 % (0.0-1.8) 01/07/21 04:26 Lymph # (Auto) 1.7 K/mm3 (1.2-5.4) 01/07/21 04:26 [place] # (Auto) 0.8 K/mm3 (0.0-0.8) 01/07/21 04:26 Eos # (Auto) 0.2 K/mm3 (0.0-0.4) 01/07/21 04:26 Baso # (Auto) 0.0 K/mm3 (0.0-0.1) 01/07/21 04:26 Seg Neutrophils % 52.8 % (40.0-70.0) 01/07/21 04:26 Seg Neutrophils # 3.1 K/mm3 (1.8-7.7) 01/07/21 04:26 PT 15.6 Sec. (12.2-14.9) H 01/06/21 18:34 INR 1.19 (0.87-1.13) H 01/06/21 18:34 APTT 37.1 Sec. (24.2-36.6) H 01/06/21 18:34 Sodium 132 mmol/L (137-145) L 01/07/21 04:26 Potassium 2.2 mmol/L (3.6-5.0) L* 01/07/21 04:26 Chloride 92.9 mmol/L (98-107) L 01/07/21 04:26 Carbon Dioxide 32 mmol/L (22-30) H 01/07/21 04:26 Anion Gap 9 mmol/L 01/07/21 04:26 BUN 3 mg/dL (7-17) L 01/07/21 04:26 Creatinine 0.4 mg/dL (0.6-1.2) L 01/07/21 04:26 Estimated GFR > 60 ml/min 01/07/21 04:26 BUN/Creatinine Ratio 8 % 01/07/21 04:26 Glucose 143 mg/dL (65-100) H 01/07/21 04:26 Calcium 7.4 mg/dL (8.4-10.2) L 01/07/21 04:26 Magnesium 1.40 mg/dL (1.7-2.3) L 01/06/21 18:34 Total Bilirubin 3.60 mg/dL (0.1-1.2) H 01/06/21 18:34 AST 65 units/L (5-40) H 01/06/21 18:34 ALT 19 units/L (7-56) 01/06/21 18:34 Alkaline Phosphatase 139 units/L (35-129) H 01/06/21 18:34 Ammonia 51.0 umol/L (25-60) 01/06/21 18:34 Total Protein 7.2 g/dL (6.3-8.2) 01/06/21 18:34 Albumin 2.4 g/dL (3.9-5) L 01/06/21 18:34 Albumin/Globulin Ratio 0.5 % 01/06/21 18:34 Jean/IV: Voiding Method Toilet Active Medications - Current Medications Current Medications: Generic Name Dose Route Start Last Admin Trade Name Freq PRN Reason Stop Dose Admin Acetaminophen 650 mg 01/06/21 22:37 Acetaminophen 325 Mg Tab PO Q4H PRN Pain MILD(1-3)/Fever >100.5/ZHANG Acetaminophen/Codeine Phosphate 1 tab 01/06/21 22:36 Acetaminophen W/Codeine 300-30 Mg Tab PO Q6H PRN Pain , Severe (7-10) Albuterol 2.5 mg 01/06/21 22:37 Albuterol 2.5 Mg/3 Ml Nebu IH Q4HRT PRN Shortness Of Breath Albuterol/Ipratropium 1 ampul 01/07/21 02:00 01/07/21 02:22 Ipratropium/Albuterol Sulfate 3 Ml Ampul.Neb IH Not Given Q6HRT [facility] Aspirin 81 mg 01/07/21 10:00 Aspirin Ec 81 Mg Tab PO BID MENG Cyclobenzaprine HCl 10 mg 01/06/21 22:36 Cyclobenzaprine 10 Mg Tab PO TID PRN Muscle Spasm Heparin Sodium (Porcine) 5,000 unit 01/07/21 06:00 01/07/21 06:28 Heparin 5,000 Unit/1 Ml Vial SUB-Q 5,000 unit Q8HR [facility] Administration Hydralazine HCl 10 mg 01/06/21 22:39 Hydralazine 20 Mg/1 Ml Inj IV Q6H PRN htn Potassium Chloride/Dextrose/Sod Cl 20 meq in 1,000 mls @ 100 mls/hr 01/06/21 23:00 D5w/0.45% Nacl/Kcl 20 Meq IV DIRECT MENG Labetalol HCl 300 mg 01/07/21 10:00 Labetalol 100 Mg Tab PO BID [facility] Multivitamins/Iron/Calcium 1 each 01/07/21 10:00 [id number] Fumarate-Folic Acid Vit Tab PO DAILY [facility] Naproxen 250 mg 01/06/21 22:51 Naproxen 500 Mg Tab PO Q6H PRN Pain, Mild (1-3) Ondansetron HCl 4 mg 01/06/21 22:37 Ondansetron 4 Mg/2 Ml Inj IV Q8H PRN Nausea And Vomiting Pantoprazole Sodium 40 mg 01/07/21 07:30 Pantoprazole 40 Mg Tab PO QDAC [facility] Sodium Chloride 10 ml 01/07/21 10:00 Sodium Chloride 0.9% 10 Ml Flush Syringe IV BID MENG Sodium Chloride 10 ml 01/06/21 22:37 Sodium Chloride 0.9% 10 Ml Flush Syringe IV PRN PRN LINE FLUSH
[2021-01-07] MEDS ORDERED: POTASSIUM CHLORIDE ER 20 MEQ TAB PO SCH (08:00)
[2021-01-07] MEDS: D5W/0.45% NACL/KCL 20 MEQ 20 MEQ/1,000 ML BAG IV SCH ×2 (08:08→18:52)
[2021-01-07] MEDS: PANTOPRAZOLE 40 MG TAB PO SCH (08:09)
[2021-01-07] MEDS ORDERED: PRENATAL VIT PO SCH (10:00)
[2021-01-07] MEDS ORDERED: [UNRECOGNIZED DRUG - OTHER] PO SCH (10:00)
[2021-01-07] MEDS ORDERED: IRON CARB PO SCH (10:00)
[2021-01-07] MEDS ORDERED: MAGNESIUM SULFATE 2 GM/50 ML BAG IV SCH (10:00)
[2021-01-07] MEDS: ASPIRIN EC 81 MG TAB PO SCH ×2 (10:14→21:18)
--- NOTE | 2021-01-07 10:22 | Electrocardiograph Report ---
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
[2021-01-07] MEDS: PRENATAL VIT27-FE FUMARATE-FOLIC ACID VIT TAB PO SCH (10:42)
[2021-01-07] MEDS ORDERED: POTASSIUM CHLORIDE 20 MEQ PACKET FEEDTUBE SCH (12:00)
[2021-01-07 16:42] LABS: Bacteria,Urine 1+ /HPF (Negative); Bilirubin,Urine NEG (Negative); Blood,Urine NEG (Negative); Color,Urine Amber (Yellow); Hyaline Casts,Urine 1 /LPF; Mucus,Urine FEW /HPF; Protein,Urine <15 mg/dL mg/dL (Negative); RBC,Urine < 1.0 /HPF (0.0-6.0)
[2021-01-08] MEDS: D5W/0.45% NACL/KCL 20 MEQ 20 MEQ/1,000 ML BAG IV SCH (05:05)
[2021-01-08] MEDS: HEPARIN 5,000 UNIT/1 ML VIAL SUB-Q SCH (05:06)
[2021-01-08 05:55] LABS: Blood Urea Nitrogen 2 mg/dL (7-17); Calcium 7.5 mg/dL (8.4-10.2); Hemolysis Index 0
[2021-01-08 05:58] LABS: BUN/Creatinine Ratio 5
[2021-01-08] MEDS ORDERED: POTASSIUM CHLORIDE 20 MEQ PACKET FEEDTUBE ONE ×2 (07:48→12:00)
[2021-01-08] MEDS: PANTOPRAZOLE 40 MG TAB PO SCH (08:10)
--- NOTE | 2021-01-08 09:02 | Progress Note ---
Assessment and Plan Assessment and plan: (1) Hypokalemia Current Visit: Yes Status: Acute Plan to address problem: Admit the patient to the medical floor. Put the patient on potassium chloride 40 mEq p.o. every 4 hours x3 dose. D5 half-normal saline with 20 mEq of potassium at the rate of 100 cc/h. We also gave 2 g of magnesium. We will recheck the CMP in the morning. (2) Hypomagnesemia Current Visit: Yes Status: Acute Plan to address problem: Put the patient on potassium chloride 40 mEq p.o. every 4 hours x3 dose. D5 half-normal saline with 20 mEq of potassium at the rate of 100 cc/h. We also gave 2 g of magnesium. We will recheck the CMP in the morning. (3) Transaminitis Current Visit: Yes Status: Acute Plan to address problem: Protonix 40 mg p.o. daily. Zofran 4 mg IV every 6 hours as needed. D5 half- normal saline with 20 of potassium at the rate of 100 cc/h. We will recheck the CMP in the morning. If needed will consult GI in the morning (4) HTN (hypertension) Current Visit: No Status: Acute Plan to address problem: Labetalol 300 mg p.o. twice daily. Hydralazine 10 mg IV every 6 hours as needed. We will monitor the blood pressure closely (5) DVT prophylaxis Current Visit: Yes Status: Acute Plan to address problem: Heparin 5000 units subcu every 8 hours for DVT prophylaxis. Protonix 40 mg p.o. daily for GI prophylaxis. Patient is a full code 01/07/2021 -Patient has severe hypokalemia and hypomagnesemia -We will replete potassium and magnesium -We will monitor levels later in the afternoon and tomorrow morning -Patient states she has chronic liver disease and followed with her GI doctor as an outpatient, no need to be evaluated as inpatient. Continue to follow with GI after discharge -Patient can be discharged tomorrow if hypokalemia and hypomagnesemia are corrected. 01/08/2021 -Patient has hypokalemia -Magnesium corrected -Patient can be discharged on follow-up with GI/hepatology as outpatient History Interval history: Patient was seen and evaluated this morning Patient was complaining abdominal distension Hospitalist Physical - Physical exam Narrative exam: Not in cardiopulmonary distress. The patient appeared well nourished and normally developed. Vital signs as documented. Head exam is unremarkable. No scleral icterus . Neck is without jugular venous distension, thyromegaly, or carotid bruits. Lungs are clear to auscultation. Cardiac exam reveals regular rate and Rhythm. Abdominal exam reveals abdominal distention. Extremities are nonedematous and both femoral and pedal pulses are normal. 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 No focal weakness. - Constitutional Vitals: Temp Pulse Resp BP Pulse Ox 98.5 F 95 H 18 99/67 99 01/08/21 03:53 01/08/21 03:53 01/08/21 03:53 01/08/21 03:53 01/08/21 03:53 General appearance: Present: no acute distress, well-nourished Results - Labs CBC & Chem 7: 01/07/21 04:26 01/08/21 05:03 Labs: Laboratory Last Values WBC 5.8 K/mm3 (4.5-11.0) 01/07/21 04:26 RBC 2.40 M/mm3 (3.65-5.03) L 01/07/21 04:26 Hgb 8.7 gm/dl (10.1-14.3) L 01/07/21 04:26 Hct 25.1 % (30.3-42.9) L 01/07/21 04:26 MCV 105 fl (79-97) H 01/07/21 04:26 MCH 36 pg (28-32) H 01/07/21 04:26 MCHC 35 % (30-34) H 01/07/21 04:26 RDW 17.0 % (13.2-15.2) H 01/07/21 04:26 Plt Count 255 K/mm3 (140-440) 01/07/21 04:26 Lymph % (Auto) 29.8 % (13.4-35.0) 01/07/21 04:26 Cook % (Auto) 13.7 % (0.0-7.3) H 01/07/21 04:26 Eos % (Auto) 3.2 % (0.0-4.3) 01/07/21 04:26 Baso % (Auto) 0.5 % (0.0-1.8) 01/07/21 04:26 Lymph # (Auto) 1.7 K/mm3 (1.2-5.4) 01/07/21 04:26 Cook # (Auto) 0.8 K/mm3 (0.0-0.8) 01/07/21 04:26 Eos # (Auto) 0.2 K/mm3 (0.0-0.4) 01/07/21 04:26 Baso # (Auto) 0.0 K/mm3 (0.0-0.1) 01/07/21 04:26 Seg Neutrophils % 52.8 % (40.0-70.0) 01/07/21 04:26 Seg Neutrophils # 3.1 K/mm3 (1.8-7.7) 01/07/21 04:26 PT 15.6 Sec. (12.2-14.9) H 01/06/21 18:34 INR 1.19 (0.87-1.13) H 01/06/21 18:34 APTT 37.1 Sec. (24.2-36.6) H 01/06/21 18:34 Sodium 132 mmol/L (137-145) L 01/08/21 05:03 Potassium 3.0 mmol/L (3.6-5.0) L 01/08/21 05:03 Chloride 98.4 mmol/L (98-107) 01/08/21 05:03 Carbon Dioxide 26 mmol/L (22-30) 01/08/21 05:03 Anion Gap 11 mmol/L 01/08/21 05:03 BUN 2 mg/dL (7-17) L 01/08/21 05:03 Creatinine 0.4 mg/dL (0.6-1.2) L 01/08/21 05:03 Estimated GFR > 60 ml/min 01/08/21 05:03 BUN/Creatinine Ratio 5 % 01/08/21 05:03 Glucose 128 mg/dL (65-100) H 01/08/21 05:03 Calcium 7.5 mg/dL (8.4-10.2) L 01/08/21 05:03 Magnesium 1.70 mg/dL (1.7-2.3) 01/08/21 05:03 Total Bilirubin 3.60 mg/dL (0.1-1.2) H 01/06/21 18:34 AST 65 units/L (5-40) H 01/06/21 18:34 ALT 19 units/L (7-56) 01/06/21 18:34 Alkaline Phosphatase 139 units/L (35-129) H 01/06/21 18:34 Ammonia 51.0 umol/L (25-60) 01/06/21 18:34 Total Protein 7.2 g/dL (6.3-8.2) 01/06/21 18:34 Albumin 2.4 g/dL (3.9-5) L 01/06/21 18:34 Albumin/Globulin Ratio 0.5 % 01/06/21 18:34 Urine Color [place] (Yellow) 01/07/21 16:08 Urine Turbidity Slightly-cloudy (Clear) 01/07/21 16:08 Urine pH 7.0 (5.0-7.0) 01/07/21 16:08 Ur Specific [place] 1.014 (1.003-1.030) 01/07/21 16:08 Urine Protein <15 mg/dl mg/dL (Negative) 01/07/21 16:08 Urine Glucose (UA) 50 mg/dL (Negative) 01/07/21 16:08 Urine Ketones Neg mg/dL (Negative) 01/07/21 16:08 Urine Blood Neg (Negative) 01/07/21 16:08 Urine Nitrite Neg (Negative) 01/07/21 16:08 Urine Bilirubin Neg (Negative) 01/07/21 16:08 Urine Urobilinogen 2.0 mg/dL (<2.0) 01/07/21 16:08 Ur Leukocyte Esterase Neg (Negative) 01/07/21 16:08 Urine WBC (Auto) 1.0 /HPF (0.0-6.0) 01/07/21 16:08 Urine RBC (Auto) < 1.0 /HPF (0.0-6.0) 01/07/21 16:08 U Epithel Cells (Auto) 7.0 /HPF (0-13.0) 01/07/21 16:08 Urine Bacteria (Auto) 1+ /HPF (Negative) 01/07/21 16:08 Hyaline Casts 1 /LPF 01/07/21 16:08 Urine Mucus Few /HPF 01/07/21 16:08 Jean/IV: Voiding Method Toilet Active Medications - Current Medications Current Medications: Generic Name Dose Route Start Last Admin Trade Name Freq PRN Reason Stop Dose Admin Acetaminophen 650 mg 01/06/21 22:37 Acetaminophen 325 Mg Tab PO Q4H PRN Pain MILD(1-3)/Fever >100.5/ZHANG Acetaminophen/Codeine Phosphate 1 tab 01/06/21 22:36 Acetaminophen W/Codeine 300-30 Mg Tab PO Q6H PRN Pain , Severe (7-10) Albuterol 2.5 mg 01/06/21 22:37 Albuterol 2.5 Mg/3 Ml Nebu IH Q4HRT PRN Shortness Of Breath Aspirin 81 mg 01/07/21 10:00 01/07/21 21:18 Aspirin Ec 81 Mg Tab PO 81 mg BID MENG Administration Cyclobenzaprine HCl 10 mg 01/06/21 22:36 Cyclobenzaprine 10 Mg Tab PO TID PRN Muscle Spasm Heparin Sodium (Porcine) 5,000 unit 01/07/21 06:00 01/08/21 05:06 Heparin 5,000 Unit/1 Ml Vial SUB-Q 5,000 unit Q8HR MENG Administration Hydralazine HCl 10 mg 01/06/21 22:39 Hydralazine 20 Mg/1 Ml Inj IV Q6H PRN htn Potassium Chloride/Dextrose/Sod Cl 20 meq in 1,000 mls @ 100 mls/hr 01/06/21 23:00 01/08/21 05:05 D5w/0.45% Nacl/Kcl 20 Meq IV 100 mls/hr DIRECT MENG Administration Labetalol HCl 300 mg 01/07/21 10:00 01/07/21 21:18 Labetalol 100 Mg Tab PO 300 mg BID MENG Administration Multivitamins/Iron/Calcium 1 each 01/07/21 10:00 01/07/21 10:42 [id number] Fumarate-Folic Acid Vit Tab PO 1 each DAILY MENG Administration Naproxen 250 mg 01/06/21 22:51 Naproxen 500 Mg Tab PO Q6H PRN Pain, Mild (1-3) Ondansetron HCl 4 mg 01/06/21 22:37 Ondansetron 4 Mg/2 Ml Inj IV Q8H PRN Nausea And Vomiting Pantoprazole Sodium 40 mg 01/07/21 07:30 01/08/21 08:10 Pantoprazole 40 Mg Tab PO 40 mg QDAC MENG Administration Sodium Chloride 10 ml 01/07/21 10:00 01/07/21 21:19 Sodium Chloride 0.9% 10 Ml Flush Syringe IV 10 ml BID MENG Administration Sodium Chloride 10 ml 01/06/21 22:37 Sodium Chloride 0.9% 10 Ml Flush Syringe IV PRN PRN LINE FLUSH
[2021-01-08] MEDS: ASPIRIN EC 81 MG TAB PO SCH (09:47)
[2021-01-08] MEDS: PRENATAL VIT27-FE FUMARATE-FOLIC ACID VIT TAB PO SCH (09:48)
--- NOTE | 2021-01-08 09:59 | Discharge Summary ---
Providers - Providers Date of Admission: 01/06/21 21:50 Date of discharge: 01/08/21 Attending physician: CHERRI MUNOZ MD 01/08/21 08:59 Consult to Physician [CONS] Routine Comment: Consulting Provider: KIYA BAKER Physician Instructions: Reason For Exam: ascites, cirrhosis Primary care physician: MARKER MAKER Hospitalization Reason for admission: Hypokalemia Condition: Stable Hospital course: History of present illness: 45 years old female with history of hypertension and back pain was brought to the emergency department because of hypokalemia and hypomagnesemia. Patient states she was at her chief yeoman office today who is Dr. Greco and she was told to come to the hospital for evaluation of a low potassium level. Patient states she was told her potassium level 2.0 today at her doctor's office. Patient denies any diuretics, diarrhea, vomiting. Patient also denies a history of adrenal disease. Patient states she does have liver disease but cannot tell me what diagnosis she has been given. She denies chest pain, shortness breath, or abdominal pain. In the emergency room patient is found to have potassium of 2.0 and magnesium 1.4. Hospital course (1) Hypokalemia Current Visit: Yes Status: Acute Plan to address problem: Admit the patient to the medical floor. Put the patient on potassium chloride 40 mEq p.o. every 4 hours x3 dose. D5 half-normal saline with 20 mEq of potassium at the rate of 100 cc/h. We also gave 2 g of magnesium. We will recheck the CMP in the morning. (2) Hypomagnesemia Current Visit: Yes Status: Acute Plan to address problem: Put the patient on potassium chloride 40 mEq p.o. every 4 hours x3 dose. D5 carbajal lf-normal saline with 20 mEq of potassium at the rate of 100 cc/h. We also gave 2 g of magnesium. We will recheck the CMP in the morning. (3) Transaminitis Current Visit: Yes Status: Acute Plan to address problem: Protonix 40 mg p.o. daily. Zofran 4 mg IV every 6 hours as needed. D5 half- normal saline with 20 of potassium at the rate of 100 cc/h. We will recheck the CMP in the morning. If needed will consult GI in the morning (4) HTN (hypertension) Current Visit: No Status: Acute Plan to address problem: Labetalol 300 mg p.o. twice daily. Hydralazine 10 mg IV every 6 hours as needed. We will monitor the blood pressure closely (5) DVT prophylaxis Current Visit: Yes Status: Acute Plan to address problem: Heparin 5000 units subcu every 8 hours for DVT prophylaxis. Protonix 40 mg p.o. daily for GI prophylaxis. Patient is a full code 01/07/2021 -Patient has severe hypokalemia and hypomagnesemia -We will replete potassium and magnesium -We will monitor levels later in the afternoon and tomorrow morning -Patient states she has chronic liver disease and followed with her GI doctor as an outpatient, no need to be evaluated as inpatient. Continue to follow with GI after discharge -Patient can be discharged tomorrow if hypokalemia and hypomagnesemia are corrected. 01/08/2021; patient's potassium this morning was 3 and I order 40 mEq of potassium to be given twice before discharge. After that patient discharged home with 40 mEq of potassium daily. Her magnesium is corrected and the level this morning was 2. Patient has abdominal distention but no significant amount of fluid appreciated on physical examination. Patient does not have any shortness of breath, his abdomen is not tense. Patient does not need paracentesis at this time. Patient states she has been followed with GI/[facility] and had all the work-up there and scheduled to see them next week. Patient advised to keep her follow-up appointment. Patient's questions and concerns were addressed at the bedside. Management plan was discussed in detail and patient was in agreement with the plan of care. Disposition: DC-01 TO HOME OR SELFCARE Final Discharge Diagnosis (Prints w/discharge instructions): Severe hypokalemia. Chronic liver disease Time spent for discharge: 25-minutes - Discharge Diagnoses (1) Chronic liver disease Status: Acute (2) Hypokalemia Status: Acute (3) Hypomagnesemia Status: Acute (4) Transaminitis Status: Acute (5) HTN (hypertension) Status: Acute Core Measure Documentation - Palliative Care Palliative Care/ Comfort Measures: Not Applicable - Core Measures Any of the following diagnoses?: none Exam - Physical Exam Narrative exam: Not in cardiopulmonary distress. The patient appeared well nourished and normally developed. Vital signs as documented. Head exam is unremarkable. No scleral icterus . Neck is without jugular venous distension, thyromegaly, or carotid bruits. Lungs are clear to auscultation. Cardiac exam reveals regular rate and Rhythm. Abdominal exam reveals abdominal distention. Extremities are nonedematous and both femoral and pedal pulses are normal. 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 No focal weakness. - Constitutional Vitals: Temp Pulse Resp BP Pulse Ox 98.5 F 95 H 18 99/67 97 01/08/21 03:53 01/08/21 03:53 01/08/21 03:53 01/08/21 03:53 01/08/21 08:35 Plan Activity: no restrictions Weight Bearing Status: Full Weight Bearing Diet: low salt Special Instructions: restrict fluid intake to (1.8L) Additional Instructions: Patient is being followed with GI/hepatology. She is scheduled next week Follow up with: PRIMARY CARE, [Primary Care Provider] - 3-5 Days Prescriptions: Potassium Chloride 40 meq PO DAILY #20 packet
[2021-01-08 10:30] VITALS: BP 100/67
== END 2021-01-08 14:29 | disposition home or self-care (01) | DRG 641 ==
LOC: ED 18:05 → 4A 21:50
PROVIDERS: ADMIT Hospitalist; ATTEND Internal Medicine
DX: E87.6 Hypokalemia (principal); E83.42 Hypomagnesemia; I10 Essential (primary) hypertension; M54.9 Dorsalgia, unspecified; K76.9 Liver disease, unspecified; F17.200 Nicotine dependence, unspecified, uncomplicated; Z88.8 Allergy status to other drugs, medicaments and biological substances
CPT/HCPCS: 36415; 80048; 80053; 81001; 82140; 83735; 84132; 85025; 85610; 85730; 93005; 96374; 99406; G0378; J1644; J3475; J3480; J7030

== ENCOUNTER 2021-05-08 16:14 | Emergency (ER) | payer MEDICAID ==
[2021-05-08] MEDS ORDERED: ONDANSETRON 4 MG/2 ML INJ IV ONE (17:49)
[2021-05-08] MEDS ORDERED: SODIUM CHLORIDE 0.9% 1000 ML 1,000 ML IV ONE (17:49)
[2021-05-08] MEDS ORDERED: MORPHINE 4 MG/1 ML INJ IV ONE (17:49)
[2021-05-08 18:12] LABS: Basophils % (Auto) 0.5 % (0.0-1.8); Eosinophils # (Auto) 0.2 K/mm3 (0.0-0.4); Hemoglobin 11.4 gm/dl (10.1-14.3); Lymphocytes # (Auto) 1.6 K/mm3 (1.2-5.4); Lymphocytes % (Auto) 19.7 % (13.4-35.0); Mean Corpuscular HGB Conc 33 % (30-34); Mean Corpuscular Volume 84 fl (79-97); Monocytes # (Auto) 1.2 K/mm3 (0.0-0.8); Platelet Count 194 K/mm3 (140-440); Red Blood Count 4.18 M/mm3 (3.65-5.03); Red Cell Distribution Width 19.7 % (13.2-15.2)
--- NOTE | 2021-05-08 18:19 | Emergency Department Report ---
ED Abdominal Pain HPI - General Chief Complaint: Abdominal Pain Stated Complaint: PAIN IN ABD AND RT SIDE Time Seen by Provider: 05/08/21 17:41 Source: patient Mode of arrival: Ambulatory Limitations: No Limitations - History of Present Illness Initial Comments: Patient is a 45-year-old female presents emergency room complaints of epigastric and right upper quadrant abdominal pain that began 2 days ago. She denies any nausea, vomiting, diarrhea, urinary symptoms, hematochezia, melena, hematemesis. She states that she has had some constipation. Patient has a past medical history of liver disease, she states that she believes she was told she has fatty liver. She states her liver disease is secondary to alcoholism. She states that she last drank alcohol 2 days ago. Patient is on spironolactone and magnesium. She states that she has an allergy to lisinopril. She states her GI doctor is Dr. Vallecillo. Severity scale (0 -10): 10 - Related Data Previous Rx's Medication Instructions Recorded Last Taken Type Ibuprofen [Motrin 800 MG tab] 800 mg PO Q6H PRN #30 tablet 09/15/14 2 Days Ago Rx ~01/05/21 Potassium Chloride 40 meq PO DAILY #20 packet 01/08/21 Unknown Rx Azithromycin [Zithromax TAB] 250 mg PO QDAY 5 Days #6 tablet 05/08/21 Unknown Rx Promethazine [Phenergan] 25 mg PO Q8HR PRN #12 tab 05/08/21 Unknown Rx oxyCODONE [roxiCODONE] 5 mg PO Q6HR PRN #12 tablet 05/08/21 Unknown Rx Allergies Allergy/AdvReac Type Severity Reaction Status Date / Time lisinopril Allergy Itching Verified 09/11/14 10:30 ED Review of Systems ROS: Stated complaint: PAIN IN ABD AND RT SIDE Other details as noted in HPI Comment: All other systems reviewed and negative ED Past Medical Hx - Past Medical History Previous Medical History?: Yes Hx Hypertension: Yes Hx Congestive Heart Failure: No Hx Diabetes: No Hx Deep Vein Thrombosis: No Hx Liver Disease: Yes Hx Renal Disease: No Hx Sickle Cell Disease: No Hx Seizures: No Hx Asthma: No Hx COPD: No Hx HIV: No Additional medical history: back pain - Surgical History Past Surgical History?: Yes Additional Surgical History: Essure - Social History Smoking Status: Current Every Day Smoker - Medications Home Medications: Home Medications Medication Instructions Recorded Confirmed Last Taken Type Ibuprofen [Motrin 800 MG tab] 800 mg PO Q6H PRN #30 tablet 09/15/14 01/07/21 2 Days Ago Rx ~01/05/21 Potassium Chloride 40 meq PO DAILY #20 packet 01/08/21 Unknown Rx Azithromycin [Zithromax TAB] 250 mg PO QDAY 5 Days #6 tablet 05/08/21 Unknown Rx Promethazine [Phenergan] 25 mg PO Q8HR PRN #12 tab 05/08/21 Unknown Rx oxyCODONE [roxiCODONE] 5 mg PO Q6HR PRN #12 tablet 05/08/21 Unknown Rx ED Physical Exam - General Limitations: No Limitations General appearance: alert, in no apparent distress - Head Head exam: Present: atraumatic, normocephalic - Eye Eye exam: Present: normal appearance - ENT ENT exam: Present: mucous membranes moist - Respiratory Respiratory exam: Present: normal lung sounds bilaterally. Absent: respiratory distress, wheezes, rales, rhonchi, stridor, chest wall tenderness, accessory muscle use, decreased breath sounds, prolonged expiratory - Cardiovascular Cardiovascular Exam: Present: regular rate, normal rhythm, normal heart sounds. Absent: systolic murmur, diastolic murmur, rubs, gallop - GI/Abdominal GI/Abdominal exam: Present: soft, tenderness (RUQ, epigastric), normal bowel sounds. Absent: distended, guarding, rebound, rigid - Neurological Exam Neurological exam: Present: alert, oriented X3 - Psychiatric Psychiatric exam: Present: normal affect, normal mood - Skin Skin exam: Present: warm, dry, intact ED Course Vital Signs 05/08/21 05/08/21 05/08/21 17:20 21:52 21:54 Temperature 99.1 F Pulse Rate 110 H 103 H 92 H Respiratory 18 12 Rate Blood Pressure 155/99 Blood Pressure 160/106 [Right] O2 Sat by Pulse 100 99 Oximetry ED Medical Decision Making - Lab Data Result diagrams: 05/08/21 17:54 05/08/21 17:54 Lab Results 05/08/21 05/08/21 05/08/21 Range/Units 17:54 17:54 17:54 WBC 8.2 (4.5-11.0) K/mm3 RBC 4.18 (3.65-5.03) M/mm3 Hgb 11.4 (10.1-14.3) gm/dl Hct 35.0 (30.3-42.9) % MCV 84 (79-97) fl MCH 27 L (28-32) pg MCHC 33 (30-34) % RDW 19.7 H (13.2-15.2) % Plt Count 194 (140-440) K/mm3 Lymph % (Auto) 19.7 (13.4-35.0) % [place] % (Auto) 15.0 H (0.0-7.3) % Eos % (Auto) 2.0 (0.0-4.3) % Baso % (Auto) 0.5 (0.0-1.8) % Lymph # (Auto) 1.6 (1.2-5.4) K/mm3 [place] # (Auto) 1.2 H (0.0-0.8) K/mm3 Eos # (Auto) 0.2 (0.0-0.4) K/mm3 Baso # (Auto) 0.0 (0.0-0.1) K/mm3 Seg Neutrophils % 62.8 (40.0-70.0) % Seg Neutrophils # 5.1 (1.8-7.7) K/mm3 Sodium 128 L (137-145) mmol/L Potassium 3.8 (3.6-5.0) mmol/L Chloride 96.6 L (98-107) mmol/L Carbon Dioxide 19 L (22-30) mmol/L Anion Gap 16 mmol/L BUN 3 L (7-17) mg/dL Creatinine 0.5 L (0.6-1.2) mg/dL Estimated GFR > 60 ml/min BUN/Creatinine Ratio 6 % Glucose 114 H (65-100) mg/dL Calcium 9.1 (8.4-10.2) mg/dL Magnesium 1.40 L (1.7-2.3) mg/dL Total Bilirubin 1.20 (0.1-1.2) mg/dL AST 51 H (5-40) units/L ALT 15 (7-56) units/L Alkaline Phosphatase 132 H (35-129) units/L Total Protein 8.6 H (6.3-8.2) g/dL Albumin 3.5 L (3.9-5) g/dL Albumin/Globulin Ratio 0.7 % Lipase 149 H (13-60) units/L HCG, Qual Negative (Negative) - Radiology Data Radiology results: report reviewed Ordering Physician: ANAHY CADET Date of Service: 05/08/21 Procedure(s): CT abdomen pelvis w con Accession Number(s): [id number] cc: ANAHY CADET CT ABDOMEN AND PELVIS WITH CONTRAST INDICATION / CLINICAL INFORMATION: epigastric, RUQ pain, hx of liver disease. TECHNIQUE: Axial CT images were obtained through the abdomen and pelvis after 100 cc of Omnipaque [address] scans at this location are performed using CT dose re duction for [facility] by means of automated exposure control. COMPARISON: 12/19/2020 FINDINGS: LOWER CHEST: There is a 7 mm solid pulmonary nodule within the medial segment of the left lower lobe. Mild groundglass attenuation is noted within the left lower lobe. AORTA / ARTERIES: Mild atherosclerotic calcification without acute abnormality. IVC / VEINS: No significant abnormality. LYMPH NODES: No significant adenopathy. COLON: Diverticulosis without acute inflammation. APPENDIX: No significant abnormality. STOMACH / SMALL BOWEL: No significant abnormality. PERITONEUM: No free fluid. No free air. No fluid collection. LIVER: Nodular contour to the liver suggesting cirrhosis. GALLBLADDER: Cholelithiasis BILE DUCTS: No significant abnormality. PANCREAS: No significant abnormality. SPLEEN: No significant abnormality. ADRENALS: No significant abnormality. RIGHT KIDNEY / URETER: No significant abnormality. LEFT KIDNEY / URETER: No significant abnormality. URINARY BLADDER: No significant abnormality. REPRODUCTIVE ORGANS: No significant abnormality. SKELETAL SYSTEM: No significant abnormality. ADDITIONAL FINDINGS: None. IMPRESSION: 1. No acute intra-abdominal pathology. 2. There are a few scattered foci of groundglass attenuation within the left lower lobe as well as a 7 mm solid pulmonary nodule. These are new compared to previous CT and may represent postinfectious or postinflammatory process. Nevertheless a repeat chest CT is recommended in 6-12 months to assess for interval change. 3. Nodular contour to the liver suggesting cirrhosis. 4. Cholelithiasis. 5. Diverticulosis without diverticulitis Signer Name: Jim Haynes DO Signed: 05/08/2021 8:53 PM Workstation Name: [id number] Transcribed By: KARMA Dictated By: JIM HAYNES DO Electronically Authenticated By: JIM HAYNES DO Signed Date/Time: 05/08/212052 DD/ 45 TD/TT: - Medical Decision Making Patient is a 45-year-old female presents emergency room complaints of epigastric and right upper quadrant abdominal pain that began 2 days ago. She denies any nausea, vomiting, diarrhea, urinary symptoms, hematochezia, melena, hematemesis. She states that she has had some constipation. Patient has a past medical history of liver disease, she states that she believes she was told she has fatty liver. She states her liver disease is secondary to alcoholism. She states that she last drank alcohol 2 days ago. Patient is on spironolactone and magnesium. She states that she has an allergy to lisinopril. She states her GI doctor is Dr. Vallecillo. She will vitals with tachycardia and elevated blood p ressure which improved upon repeat. On exam patient has epigastric and right upper quadrant tenderness, no guarding, no rebound, no rigidity, no peritoneal signs. Labs with hyponatremia, hypomagnesia, elevated AST, elevated lipase. Patient given 1 L normal saline, IV magnesium, morphine and Zofran. CT abdomen pelvis with IV contrast: 1. No acute intra-abdominal pathology. 2. There are a few scattered foci of groundglass attenuation within the left lower lobe as well as a 7 mm solid pulmonary nodule. These are new compared to previous CT and may represent postinfectious or postinflammatory process. Nevertheless a repeat chest CT is recommended in 6-12 months to assess for interval change. 3. Nodular contour to the liver suggesting cirrhosis. 4. Cholelithiasis. 5. Diverticulosis without diverticulitis. On reexamination after medications patient symptoms have significantly improved and she is feeling much better and ready to go home and states that her pain is improved. Discussed case with Dr. Theron Cardona, ER attending regarding patient's laboratory and CT studies, he advised to give patient prescriotion for pain medication, nausea medication, azithromycin and encouraged alcohol cessation. advised pt Please take medication as prescribed. Please eat a clear liquid diet. Follow-up with a primary care doctor. Follow-up with a GI doctor. Please stop drinking. Return to emergency room for any new or worsening symptoms. Critical care attestation.: If time is entered above; I have spent that time in minutes in the direct care of this critically ill patient, excluding procedure time. ED Disposition Clinical Impression: Pulmonary nodule, Hypomagnesemia, Elevated AST (SGOT), Elevated lipase, Alcohol abuse, Ground glass opacity present on imaging of lung, Hyponatremia Abdominal pain Qualifiers: Abdominal location: epigastric Qualified Code(s): R10.13 - Epigastric pain Cholelithiasis Qualifiers: Cholelithiasis location: gallbladder Cholecystitis presence: without cholecystitis Biliary obstruction: without biliary obstruction Qualified Code(s): K80.20 - Calculus of gallbladder without cholecystitis without obstruction Cirrhosis Qualifiers: Hepatic cirrhosis type: unspecified hepatic cirrhosis Ascites presence: without ascites Qualified Code(s): K74.60 - Unspecified cirrhosis of liver Disposition: HOME / SELF CARE / HOMELESS Is pt being admited?: No Does the pt Need Aspirin: No Condition: Stable Instructions: Cholelithiasis, Abdominal Pain, Adult, Cirrhosis, Abdominal Pain (ED) Additional Instructions: Please take medication as prescribed. Please eat a clear liquid diet. Follow- up with a primary care doctor. Follow-up with a GI doctor. Please stop drinking. Return to emergency room for any new or worsening symptoms. Prescriptions: Promethazine [Phenergan] 25 mg PO Q8HR PRN #12 tab PRN Reason: Nausea oxyCODONE [roxiCODONE] 5 mg PO Q6HR PRN #12 tablet PRN Reason: Pain , Severe (7-10) Azithromycin [Zithromax TAB] 250 mg PO QDAY 5 Days #6 tablet Referrals: your, GI doctor [Other] - 2-3 Days your, primary care doctor [Other] - 2-3 Days Time of Disposition: 21:26 Print Language: LUXEMBOURGISH
[2021-05-08 18:34] LABS: Alanine Aminotransferase 15 units/L (7-56); Albumin 3.5 g/dL (3.9-5); Blood Urea Nitrogen 3 mg/dL (7-17); Calcium 9.1 mg/dL (8.4-10.2); Hemolysis Index 8
[2021-05-08 18:36] LABS: BUN/Creatinine Ratio 6
[2021-05-08] MEDS ORDERED: MAGNESIUM SULFATE 2 GM/50 ML BAG IV ONE (18:40)
--- NOTE | 2021-05-08 20:58 | Cat Scan Report ---
CT ABDOMEN AND PELVIS WITH CONTRAST INDICATION / CLINICAL INFORMATION: epigastric, RUQ pain, hx of liver disease. TECHNIQUE: Axial CT images were obtained through the abdomen and pelvis after 100 cc of Omnipaque [address] scans at this location are performed using CT dose reduction for ALARA by means of automated exposure control. COMPARISON: 12/19/2020 FINDINGS: LOWER CHEST: There is a 7 mm solid pulmonary nodule within the medial segment of the left lower lobe. Mild groundglass attenuation is noted within the left lower lobe. AORTA / ARTERIES: Mild atherosclerotic calcification without acute abnormality. IVC / VEINS: No significant abnormality. LYMPH NODES: No significant adenopathy. COLON: Diverticulosis without acute inflammation. APPENDIX: No significant abnormality. STOMACH / SMALL BOWEL: No significant abnormality. PERITONEUM: No free fluid. No free air. No fluid collection. LIVER: Nodular contour to the liver suggesting cirrhosis. GALLBLADDER: Cholelithiasis BILE DUCTS: No significant abnormality. PANCREAS: No significant abnormality. SPLEEN: No significant abnormality. ADRENALS: No significant abnormality. RIGHT KIDNEY / URETER: No significant abnormality. LEFT KIDNEY / URETER: No significant abnormality. URINARY BLADDER: No significant abnormality. REPRODUCTIVE ORGANS: No significant abnormality. SKELETAL SYSTEM: No significant abnormality. ADDITIONAL FINDINGS: None. IMPRESSION: 1. No acute intra-abdominal pathology. 2. There are a few scattered foci of groundglass attenuation within the left lower lobe as well as a 7 mm solid pulmonary nodule. These are new compared to previous CT and may represent postinfectious o r postinflammatory process. Nevertheless a repeat chest CT is recommended in 6-12 months to assess fo r interval change. 3. Nodular contour to the liver suggesting cirrhosis. 4. Cholelithiasis. 5. Diverticulosis without diverticulitis Signer Name: Jim Maldonado DO Signed: 05/08/2021 8:53 PM Workstation Name: [id number]
[2021-05-08 21:54] VITALS: BP 155/99
== END 2021-05-08 21:55 | disposition home or self-care (01) ==
LOC: ED 16:14
DX: K80.20 Calculus of gallbladder without cholecystitis without obstruction (principal); K74.60 Unspecified cirrhosis of liver; R91.8 Other nonspecific abnormal finding of lung field; E83.42 Hypomagnesemia; R74.01 Elevation of levels of liver transaminase levels; F10.10 Alcohol abuse, uncomplicated; R94.2 Abnormal results of pulmonary function studies; I10 Essential (primary) hypertension; K76.9 Liver disease, unspecified; M54.9 Dorsalgia, unspecified; Z98.890 Other specified postprocedural states; F17.200 Nicotine dependence, unspecified, uncomplicated; Z88.8 Allergy status to other drugs, medicaments and biological substances
CPT/HCPCS: 36415; 74177; 80053; 83690; 83735; 84703; 85025; 96365; 96375; 99284; J2270; J2405; J3475; J7030; Q9967

== ENCOUNTER 2021-12-02 08:58 | Emergency (ER) | payer MEDICAID ==
--- NOTE | 2021-12-02 11:33 | Emergency Department Report ---
ED Eye Problem HPI - General Stated complaint: LEFT EYE SWOLLEN - History of Present Illness Initial comments: 46-year-old female presents to the ED complaining left redness and tenderness x5 days. She states that her fianc was currently treated for conjunctivitis . She states that she was exposed as she was was inserting the eyedrop into her fianc eyes. Patient states she did not wash her hands after placing a drop into her fianc eyes. She states she nortice her eye began to tear up and later became red. Patient states she attempted to use her eyedrop unknown name of eye drop, without successful result. Patient states this a.m. that she awakened with both eyes matted together. Patient denies any blurry vision at this time has she drove herself to the ED. patient does complain of itching sensation. Denies any headache earache at present time. Patient is alert and oriented x3. No acute distress noted .No ill appearance noted. chief complaint: eye redness Onset/Timin -: Gradual, days(s) Onset Description: gradual Location: left eye Place: home Eye Symptoms: redness, itching, discharge Severity: moderate Severity scale (0 -10): 0 Treatments Prior to Arrival: OTC eye drops - Related Data Previous Rx's Medication Instructions Recorded Last Taken Type Ibuprofen [Motrin 800 MG tab] 800 mg PO Q6H PRN #30 tablet 09/15/14 2 Days Ago Rx ~01/05/21 Potassium Chloride 40 meq PO DAILY #20 packet 01/08/21 Unknown Rx Azithromycin [Zithromax TAB] 250 mg PO QDAY 5 Days #6 tablet 05/08/21 Unknown Rx Promethazine [Phenergan] 25 mg PO Q8HR PRN #12 tab 05/08/21 Unknown Rx oxyCODONE [roxiCODONE] 5 mg PO Q6HR PRN #12 tablet 05/08/21 Unknown Rx Polymyxin B Sulf/Trimethoprim 1 drop OU Q3HR 10 Days #5 ml 12/02/21 Unknown Rx [Polytrim Eye Drops [id number]/0.1%] Allergies Allergy/AdvReac Type Severity Reaction Status Date / Time lisinopril Allergy Itching Verified 09/11/14 10:30 ED Review of Systems ROS: Stated complaint: LEFT EYE SWOLLEN Other details as noted in HPI ED Past Medical Hx - Past Medical History Hx Hypertension: Yes Hx Congestive Heart Failure: No Hx Diabetes: No Hx Deep Vein Thrombosis: No Hx Liver Disease: Yes Hx Renal Disease: No Hx Sickle Cell Disease: No Hx Seizures: No Hx Asthma: No Hx COPD: No Hx HIV: No Additional medical history: back pain - Surgical History Additional Surgical History: Essure - Social History Smoking Status: Current Every Day Smoker - Medications Home Medications: Home Medications Medication Instructions Recorded Confirmed Last Taken Type Ibuprofen [Motrin 800 MG tab] 800 mg PO Q6H PRN #30 tablet 09/15/14 01/07/21 2 Days Ago Rx ~01/05/21 Potassium Chloride 40 meq PO DAILY #20 packet 01/08/21 Unknown Rx Azithromycin [Zithromax TAB] 250 mg PO QDAY 5 Days #6 tablet 05/08/21 Unknown Rx Promethazine [Phenergan] 25 mg PO Q8HR PRN #12 tab 05/08/21 Unknown Rx oxyCODONE [roxiCODONE] 5 mg PO Q6HR PRN #12 tablet 05/08/21 Unknown Rx Polymyxin B Sulf/Trimethoprim 1 drop OU Q3HR 10 Days #5 ml 12/02/21 Unknown Rx [Polytrim Eye Drops [id number]/0.1%] ED Course Vital Signs 12/02/21 12/02/21 11:49 12:13 Temperature 97.1 F L Pulse Rate 89 Respiratory 18 Rate Blood Pressure 151/93 [Left] O2 Sat by Pulse 98 98 Oximetry ED Medical Decision Making - Medical Decision Making 46-year-old female presents to the ED complaining left redness and tenderness x5 days. She states that her fianc was currently treated for conjunctivitis . She states that she was exposed as she was was inserting the eyedrop into her fianc eyes. Patient states she did not wash her hands after placing a drop into her fianc. She states she knows that her eye began to tear up and later became red. Patient states she attempted to use her eyedrop unknown name without successful result. Patient states this a.m. that she awakened with both eyes matted together. Patient denies any blurry vision at this time has she drove herself to the ED. patient does complain of itching sensation. Denies any headache earache at present time. Patient is alert and oriented x3. No acute distress noted .No ill appearance noted. Physical examination patient has redness noted to the left eye with mild edema noted to the left eyelid. Visual acuity 20/60 right and left and both eyes Rechecked the patient is resting quietly quietly and comfortable and feeling better. I discussed the results of diagnostic study, my clinical impression and the plan for further treatment with the patient. Patient agrees with plan and discharge at this present time. All question addressed. I have given the patient instruction regarding a diagnosis ,expectation ,follow- up and return precaution. I explained to the patient that emergent condition may arise and to return to the ED for new worsen and any new persisting condition. I have explained the importance of following up with the primary care physician or referral physician listed below has instructed. The patient verbalized understanding of discharge instruction. Critical care attestation.: If time is entered above; I have spent that time in minutes in the direct care of this critically ill patient, excluding procedure time. ED Disposition Clinical Impression: Bacterial conjunctivitis of left eye Disposition: 01 HOME / SELF CARE / HOMELESS Is pt being admited?: No Does the pt Need Aspirin: No Condition: Stable Instructions: Bacterial Conjunctivitis, Adult, [id number], How to Use Eye Drops and Eye Ointments Additional Instructions: Take medication as prescribed Follow Up with ophthalmology Prescriptions: Polymyxin B Sulf/Trimethoprim [Polytrim Eye Drops [id number]/0.1%] 1 drop OU Q3HR 10 Days #5 ml Referrals: PRIMARY MD LOPEZ [Primary Care Provider] - 3-5 Days NISREEN CONTRERAS MD [Staff Physician] - 3-5 Days Forms: Work/School Release Form(ED) Time of Disposition: 12:04
[2021-12-02 11:51] VITALS: BP 151/93
== END 2021-12-02 12:17 | disposition home or self-care (01) ==
LOC: ED 08:58
DX: H10.32 Unspecified acute conjunctivitis, left eye (principal); F17.200 Nicotine dependence, unspecified, uncomplicated; I10 Essential (primary) hypertension; Z88.8 Allergy status to other drugs, medicaments and biological substances
CPT/HCPCS: 99282

== ENCOUNTER 2021-12-14 01:11 | Emergency (ER) | payer MEDICAID ==
[2021-12-14 07:17] LABS: Hemoglobin 10.7 gm/dl (10.1-14.3); Mean Corpuscular HGB Conc 32 % (30-34); Mean Corpuscular Volume 82 fl (79-97); Platelet Count 283 K/mm3 (140-440); Red Blood Count 4.13 M/mm3 (3.65-5.03)
[2021-12-14 07:26] LABS: Red Cell Distribution Width 23.9 % (13.2-15.2)
[2021-12-14 07:41] LABS: Alanine Aminotransferase 23 units/L (7-56); BUN/Creatinine Ratio 6; Blood Urea Nitrogen 3 mg/dL (7-17); Calcium 8.3 mg/dL (8.4-10.2); Hemolysis Index 21
[2021-12-14 08:22] LABS: Bilirubin,Urine NEG (Negative); Blood,Urine NEG (Negative); Color,Urine Yellow (Yellow); Mucus,Urine FEW /HPF; Protein,Urine <15 mg/dL mg/dL (Negative); Urobilinogen,Urine < 2.0 mg/dL (<2.0)
[2021-12-14] MEDS ORDERED: ONDANSETRON 4 MG/2 ML INJ IV STA (10:07)
[2021-12-14] MEDS ORDERED: MORPHINE 4 MG/1 ML INJ IV STA (10:07)
--- NOTE | 2021-12-14 11:03 | Cat Scan Report ---
CT abdomen pelvis w con INDICATION / CLINICAL INFORMATION: epigastric pain. TECHNIQUE: Axial CT images were obtained through the abdomen and pelvis after 100 cc Omnipaque [address] scans at this location are performed using CT dose reduction for ALARA by means of automated exposure control. COMPARISON: 05/08/2021 FINDINGS: LOWER CHEST: Lung bases are clear. Inflammatory nodules in the left lower lobe previously seen on CT from 05/08/2021 have resolved. No suspicious nodules in the lung bases. LIVER: Cirrhotic morphology of the liver. No focal hepatic lesion. GALLBLADDER/BILIARY TREE: Gallbladder is distended with cholelithiasis. No evidence of gallbladder wa ll thickening. No biliary dilatation. PANCREAS: No significant abnormality SPLEEN: No significant abnormality ADRENALS: No significant abnormality RIGHT KIDNEY / URETER: No significant abnormality LEFT KIDNEY / URETER: No significant abnormality URINARY BLADDER: No significant abnormality REPRODUCTIVE ORGANS: No significant abnormality STOMACH / BOWEL: Stomach appears unremarkable. Moderate inflammation and fluid in the region of the p roximal duodenum with suspected ulceration (series 2 image 71). There is no well-organized collection at this time. No extra luminal free air. Remainder of the bowel is unremarkable, aside from mild col onic diverticulosis, noninflamed. Normal appendix. LYMPH NODES: No significant adenopathy. VASCULATURE: No significant abnormality. OTHER: No free air, free fluid, or focal fluid collection is identified. SKELETAL SYSTEM: No acute osseous findings. IMPRESSION: 1. Moderate inflammation and fluid in the region of the proximal duodenum with suspected ulceration. Findings are most consistent with peptic ulcer disease. No free air or well organized collection at t his time. GI consultation is recommended. 2. No other acute findings. Other chronic and incidental findings as above. Findings were discussed with ordering provider by phone on 12/14/2021 at 9:50 AM. Signer Name: Justice Cazares MD Signed: 12/14/2021 10:54 AM Workstation Name: [id number]
[2021-12-14 12:11] VITALS: BP 113/78
--- NOTE | 2021-12-14 12:44 | Emergency Department Report ---
ED Abdominal Pain HPI - General Chief Complaint: Abdominal Pain Stated Complaint: RIGHT SIDE ABD PAIN Time Seen by Provider: 12/14/21 09:05 Source: patient Mode of arrival: Ambulatory Limitations: No Limitations - History of Present Illness MD Complaint: abdominal pain Severity scale (0 -10): 2 - Related Data Previous Rx's Medication Instructions Recorded Last Taken Type Ibuprofen [Motrin 800 MG tab] 800 mg PO Q6H PRN #30 tablet 09/15/14 2 Days Ago Rx ~01/05/21 Potassium Chloride 40 meq PO DAILY #20 packet 01/08/21 Unknown Rx Azithromycin [Zithromax TAB] 250 mg PO QDAY 5 Days #6 tablet 05/08/21 Unknown Rx Promethazine [Phenergan] 25 mg PO Q8HR PRN #12 tab 05/08/21 Unknown Rx oxyCODONE [roxiCODONE] 5 mg PO Q6HR PRN #12 tablet 05/08/21 Unknown Rx Polymyxin B Sulf/Trimethoprim 1 drop OU Q3HR 10 Days #5 ml 12/02/21 Unknown Rx [Polytrim Eye Drops 56201wwcxr/0.1%] Omeprazole 40 mg PO DAILY #30 12/14/21 Unknown Rx Allergies Allergy/AdvReac Type Severity Reaction Status Date / Time lisinopril Allergy Mild Itching Verified 12/14/21 09:49 ED Review of Systems ROS: Stated complaint: RIGHT SIDE ABD PAIN Other details as noted in HPI Comment: All other systems reviewed and negative ED Past Medical Hx - Past Medical History Previous Medical History?: Yes Hx Hypertension: Yes Hx Congestive Heart Failure: No Hx Diabetes: No Hx Deep Vein Thrombosis: No Hx Liver Disease: Yes Hx Renal Disease: No Hx Sickle Cell Disease: No Hx Seizures: No Hx Asthma: No Hx COPD: No Hx HIV: No Additional medical history: back pain - Surgical History Additional Surgical History: Essure - Social History Smoking Status: Never Smoker Substance Use Type: None - Medications Home Medications: Home Medications Medication Instructions Recorded Confirmed Last Taken Type Ibuprofen [Motrin 800 MG tab] 800 mg PO Q6H PRN #30 tablet 09/15/14 01/07/21 2 Days Ago Rx ~01/05/21 Potassium Chloride 40 meq PO DAILY #20 packet 01/08/21 Unknown Rx Azithromycin [Zithromax TAB] 250 mg PO QDAY 5 Days #6 tablet 05/08/21 Unknown Rx Promethazine [Phenergan] 25 mg PO Q8HR PRN #12 tab 05/08/21 Unknown Rx oxyCODONE [roxiCODONE] 5 mg PO Q6HR PRN #12 tablet 05/08/21 Unknown Rx Polymyxin B Sulf/Trimethoprim 1 drop OU Q3HR 10 Days #5 ml 12/02/21 Unknown Rx [Polytrim Eye Drops 52980uospk/0.1%] Omeprazole 40 mg PO DAILY #30 12/14/21 Unknown Rx ED Physical Exam - General Limitations: No Limitations General appearance: alert, in no apparent distress - Head Head exam: Present: atraumatic, normocephalic - Eye Eye exam: Present: normal appearance, PERRL, EOMI Pupils: Present: normal accommodation - ENT ENT exam: Present: normal exam, mucous membranes moist, TM's normal bilaterally - Neck Neck exam: Present: normal inspection, full ROM - Respiratory Respiratory exam: Present: normal lung sounds bilaterally. Absent: respiratory distress - Cardiovascular Cardiovascular Exam: Present: regular rate, normal rhythm. Absent: systolic murmur, diastolic murmur, rubs, gallop - GI/Abdominal GI/Abdominal exam: Present: soft, tenderness, normal bowel sounds. Absent: guarding, rebound, hyperactive bowel sounds, hypoactive bowel sounds, orga nomegaly - Extremities Exam Extremities exam: Present: normal inspection, full ROM, normal capillary refill - Back Exam Back exam: Present: normal inspection. Absent: CVA tenderness (R), CVA tenderness (L), muscle spasm - Neurological Exam Neurological exam: Present: alert, oriented X3, CN II-XII intact, normal gait - Psychiatric Psychiatric exam: Present: normal affect, normal mood. Absent: anxious, flat affect - Skin Skin exam: Present: warm, dry, intact, normal color. Absent: rash ED Course Vital Signs 12/14/21 12/14/21 12/14/21 01:24 09:47 09:54 Temperature 98.3 F Pulse Rate 94 H Respiratory 18 Rate Blood Pressure 131/87 Blood Pressure 116/80 [Right] O2 Sat by Pulse 100 99 100 Oximetry 12/14/21 12/14/21 12/14/21 10:00 10:04 10:16 Temperature Pulse Rate 92 H Respiratory 16 Rate Blood Pressure 131/87 131/87 Blood Pressure 131/87 [Right] O2 Sat by Pulse 99 100 100 Oximetry 12/14/21 12/14/21 12/14/21 11:30 11:46 12:00 Temperature Pulse Rate Respiratory Rate Blood Pressure 112/74 112/74 113/78 Blood Pressure [Right] O2 Sat by Pulse 99 98 98 Oximetry ED Medical Decision Making - Lab Data Result diagrams: 12/14/21 06:57 12/14/21 06:57 - Radiology Data Radiology results: report reviewed [facility] [address] [place] [address] Cat Scan Report Signed Patient: MARCUS GONZALES MR#: [id number] : 1975 Acct:[id number] Age/Sex: 46 / F ADM Date: 12/14/21 Loc: ED Attending Dr: Ordering Physician: ANAHY RED Date of Service: 12/14/21 Procedure(s): CT abdomen pelvis w con Accession Number(s): [id number] cc: ANAHY RED CT abdomen pelvis w con INDICATION / CLINICAL INFORMATION: epigastric pain. TECHNIQUE: Axial CT images were obtained through the abdomen and pelvis after 100 cc Omnipaque [address] scans at this location are performed using CT dose redu ction for [facility] by means of automated exposure control. COMPARISON: 05/08/2021 FINDINGS: LOWER CHEST: Lung bases are clear. Inflammatory nodules in the left lower lobe previously seen on CT from 05/08/2021 have resolved. No suspicious nodules in the lung bases. LIVER: Cirrhotic morphology of the liver. No focal hepatic lesion. GALLBLADDER/BILIARY TREE: Gallbladder is distended with cholelithiasis. No evidence of gallbladder wall thickening. No biliary dilatation. PANCREAS: No significant abnormality SPLEEN: No significant abnormality ADRENALS: No significant abnormality RIGHT KIDNEY / URETER: No significant abnormality LEFT KIDNEY / URETER: No significant abnormality URINARY BLADDER: No significant abnormality REPRODUCTIVE ORGANS: No significant abnormality STOMACH / BOWEL: Stomach appears unremarkable. Moderate inflammation and fluid in the region of the proximal duodenum with suspected ulceration (series 2 image 71). There is no well-organized collection at this time. No extra luminal free air. Remainder of the bowel is unremarkable, aside from mild colonic diverticulosis, noninflamed. Normal appendix. LYMPH NODES: No significant adenopathy. VASCULATURE: No significant abnormality. OTHER: No free air, free fluid, or focal fluid collection is identified. SKELETAL SYSTEM: No acute osseous findings. IMPRESSION: 1. Moderate inflammation and fluid in the region of the proximal duodenum with suspected ulceration. Findings are most consistent with peptic ulcer disease. No free air or well organized collection at this time. GI consultation is recommended. 2. No other acute findings. Other chronic and incidental findings as above. Findings were discussed with ordering provider by phone on 12/14/2021 at 9:50 AM. Signer Name: Sam Samano MD Signed: 12/14/2021 10:54 AM Workstation Name: [id number] Transcribed By: AUDI Dictated By: SAM SAMANO MD Electronically Authenticated By: SAM SAMANO MD Signed Date/Time: 12/14/21 1054 DD/ 1039 TD/TT: - Medical Decision Making This patient presents with abdominal pain appears to be secondary to peptic ulcer disease but no clear emergent etiology. Their evaluation has not identified a emergent etiology for the abdominal pain. Specifically, given the relatively benign exam, normal laboratory studies, and lack of significant risk factors, I have a very low suspicion for appendicitis, ischemic bowel, bowel perforation, or any other life threatening disease. I have discussed with the patient the level of uncertainty with undifferentiated abdominal pain and jes kaylyn explained the need to follow-up as noted on the discharge instructions, or return to the Emergency Department immediately if the pain worsens, develops fever, persistent and uncontrollable vomiting, or for any new symptoms or concerns. I discussed with the patient that this presentation today for abdominal pain could represent a significant risk for an acute abdominal process. Although the tests in the ED were essentially normal, there is still a possibility of a process such as appendicitis, diverticulitis, cholecystitis, ulcer, early bowel obstruction, mesenteric ischemia, kidney stone, or even kidney infection which could subsequently cause disability or . The patient understands that they must return within 24 hours for a recheck or see their physician within 24 hours for re-exam due to the possibility of significant surgical or medical process. Critical care attestation.: If time is entered above; I have spent that time in minutes in the direct care of this critically ill patient, excluding procedure time. ED Disposition Clinical Impression: Peptic ulcer disease, Abdominal pain Disposition: 01 HOME / SELF CARE / HOMELESS Is pt being admited?: No Does the pt Need Aspirin: No Condition: Stable Instructions: Peptic Ulcer, Abdominal Pain (ED) Additional Instructions: You have been evaluated emergency department today for abdominal pain. Your evaluation did not show evidence of any medical conditions requiring emergent intervention at this time. Your lipase was it was elevated but not to a significant degree significant pancreatitis does not appear to be present at this time please drink plenty of fluids. Please schedule an appointment with your primary care physician. Return to emergency department if you experience worsening uncontrolled pain, fevers of 100.4 or greater, recurrent vomiting, inability to tolerate food or fluids by mouth, bloody stools or vomit, black tarry stools, or any other concerning symptoms. Prescriptions: Omeprazole 40 mg PO DAILY #30 Referrals: [facility] [Provider Group] - 3-5 Days PRIMARY CARE, [Primary Care Provider] - 3-5 Days
== END 2021-12-14 13:05 | disposition home or self-care (01) ==
LOC: ED 01:11
DX: K27.9 Peptic ulcer, site unspecified, unspecified as acute or chronic, without hemorrhage or perforation (principal); R10.9 Unspecified abdominal pain; I10 Essential (primary) hypertension; K76.9 Liver disease, unspecified; Z98.890 Other specified postprocedural states; Z88.8 Allergy status to other drugs, medicaments and biological substances
CPT/HCPCS: 36415; 74177; 80053; 81001; 83690; 84703; 85027; 96374; 96375; 99284; J2270; J2405; Q9967